=== PATIENT | female | born 1930 | race Caucasian/White ===

== ENCOUNTER 2017-04-17 12:33 | Inpatient (IN) | payer MEDICARE ==
[~2017-04-17] VITALS: Ht 160 cm; Wt 89.4 kg
[2017-04-17] MEDS ORDERED: Albuterol ud Inhalation HHN ONE (13:00)
[2017-04-17] MEDS ORDERED: METOPROLOL SUCC25 MG ORAL (13:07)
[2017-04-17] MEDS ORDERED: LORAZEPAM0.5 MG ORAL (13:07)
[2017-04-17] MEDS ORDERED: CRESTOR40 MG ORAL (13:07)
[2017-04-17] MEDS ORDERED: MULTIVITAMINS1 EAC2 ORAL (13:07)
[2017-04-17] MEDS ORDERED: LANTUS SOL100 UNIT/1 SUBQ (13:07)
[2017-04-17] MEDS ORDERED: MICARDIS40 MG ORAL (13:07)
[2017-04-17] MEDS ORDERED: GLIMEPIRIDE4 MG ORAL (13:07)
[2017-04-17] MEDS ORDERED: SYNTHROID25 MCG ORAL (13:07)
[2017-04-17] MEDS ORDERED: FUROSEMIDE20 M1 ORAL (13:07)
[2017-04-17] MEDS ORDERED: FOLIC ACID1 MG ORAL (13:07)
[2017-04-17] MEDS ORDERED: OMEGA-31000 M1 PO (13:07)
[2017-04-17] MEDS ORDERED: MIRALAX17 G2 ORAL (13:07)
[2017-04-17] MEDS ORDERED: VITAMIN D400 INTLU ORAL (13:07)
[2017-04-17] MEDS ORDERED: GLUCOSAMINE1000 M1 PO (13:07)
[2017-04-17] MEDS ORDERED: VITAMIN B-12100 MCG ORAL (13:07)
[2017-04-17] MEDS ORDERED: ASPIR 8181 MG ORAL (13:07)
[2017-04-17] MEDS ORDERED: CO Q-10400 MG PO (13:07)
[2017-04-17] MEDS ORDERED: JANUVIA25 MG ORAL (13:07)
[2017-04-17] MEDS ORDERED: GABAPENTIN600 MG ORAL (13:07)
[2017-04-17] MEDS ORDERED: NITROFURANTOIN100 MG PO (13:07)
[2017-04-17] MEDS ORDERED: TYLENOL EXTRA500 MG ORAL ×2 (13:07→18:54)
[2017-04-17] MEDS ORDERED: CALTRATE 600 +1 EAC2 PO (13:07)
[2017-04-17 13:15] VITALS: BP 142/61
[2017-04-17 13:47] LABS: BASOPHILS % (AUTO) 0.9 % (0.0-2.0); EOSINOPHILS % (AUTO) 1.5 % (0.0-3.0); HEMATOCRIT 43.7 % (37.0-47.0); HEMOGLOBIN 13.7 G/DL (12.0-16.0); LYMPHOCYTES % (AUTO) 24.8 % (20.0-45.0); MEAN CORPUSCULAR VOLUME 103 FL (80-99); MONOCYTES % (AUTO) 10.3 % (1.0-10.0); NEUTROPHILS % (AUTO) 62.5 % (45.0-75.0); PLATELET COUNT 113 K/UL (150-450); RED BLOOD COUNT 4.23 M/UL (4.20-5.40)
[2017-04-17 13:56] LABS: INR 1.1 (0.9-1.1)
[2017-04-17 13:59] LABS: ANION GAP 1 mmol/L (5-15); BLOOD UREA NITROGEN 38 mg/dL (7-18); CALCIUM 9.2 MG/DL (8.5-10.1); CHLORIDE 98 MMOL/L (98-107); CREATININE 1.3 MG/DL (0.55-1.30); POTASSIUM 5.5 MMOL/L (3.5-5.1); SODIUM 143 MMOL/L (136-145)
[2017-04-17 14:01] LABS: CARBON DIOXIDE 45 MMOL/L (21-32)
[2017-04-17 14:15] LABS: ALANINE AMINOTRANSFERASE 35 U/L (12-78); ALBUMIN 3.1 G/DL (3.4-5.0); ALBUMIN/GLOBULIN RATIO 0.8 (1.0-2.7); ALKALINE PHOSPHATASE 42 U/L (46-116); ASPARTATE AMINO TRANSFERASE 31 U/L (15-37); BILIRUBIN,TOTAL 0.4 MG/DL (0.2-1.0); CREATINE KINASE 35 U/L (26-308)
[2017-04-17 15:00] VITALS: BP 126/68
--- NOTE | 2017-04-17 15:10 | Emergency Room Report ---
History of Present Illness General Chief Complaint: Upper Respiratory Illness Source: Patient, EMS, Caregiver Present Illness HPI Paramedics called because of respiratory difficulty with low O2 saturations. Apparently O2 sats in 50-60s. Patient denies chest pain. Chronic CO2 retention. PMD felt she might have "fluid on her lungs", though not evaluated for this in past. Initial sat with EMS was 71% and this heri to 96% on 6 liters by NR mask. Patient denies fever, productive cough, NVD, calf pain. She does have some swelling of extremities. Pacemaker. Glucose 380 in field. ON BIPAP at home. 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 According to government instructor, patient is DNR/DNI. Patient states she is thirsty. Allergies: Coded Allergies: No Known Allergies (Unverified , 04/17/17) Patient History Limited by: medical condition Past Medical History: see triage record, old chart reviewed Past Surgical History: pacemaker Social History: Denies: smoking Social History Narrative with government instructor - born [facility] Reviewed Nursing Documentation: PMH: Agreed, PSxH: Agreed Nursing Documentation-PMH Past Medical History: No History, Except For Hx Cardiac Problems: Yes - CHF Hx Hypertension: Yes Hx COPD: Yes Hx Diabetes: Yes Hx Cancer: No - HYPOTHROIDISIM History Of Psychiatric Problem: Yes - ANXIETY Hx Cerebrovascular Accident: Yes Review of Systems All Other Systems: negative except mentioned in HPI Physical Exam Vital Signs Date Time Temp Pulse Resp B/P (MAP) Pulse Ox O2 Delivery O2 Flow Rate FiO2 04/17/17 12:25 98.2 87 20 150/55 92 Nasal Cannula 6.0 04/17/17 13:35 100 Sp02 EP Interpretation: reviewed, abnormal - interpreted as low by me General Appearance: GCS 15, mild distress, obese, Chronically Ill Head: normocephalic Eyes: bilateral eye normal inspection, bilateral eye PERRL ENT: dry mucus membranes Neck: supple Respiratory: crackles, rales, wheezing, expiration Cardiovascular #1: regular rate, rhythm, no JVD, edema - bilat + Cardiovascular #2: 2+ radial (R) Gastrointestinal: non tender, no mass, non-distended, decreased bowel sounds, overweight Genitourinary: normal inspection Musculoskeletal: back normal, normal range of motion, no calf tenderness Neurologic: alert, oriented x3, motor strength/tone normal, DTRs symmetric, sensory intact Psychiatric: anxious Skin: normal inspection, warm/dry Procedures Critical Care Time Critical Care Time Total Critical Care Time: 45 min bedside evaluation and treatment excludes procedures (EKG). Reason for critical care: evaluation of respiratory distress/failure, NSTEMI Possible complications: hypotension, hypertension, DE, shock, arrhythmias, metabolic acidosis, end organ damage, respiratory failure. Interventions: BIPAP, repeated exams, discussion with family regarding level of care Course: Patient with hypoxia and h/o CO2 retention. Treatment with beta agents. Re-evaluation with some confusion. BIPAP begun. + troponin treated with aspirin. Discussion with family regarding level of care (along with patient). Improved mentation on BIPAP. Discussion with admitting MD at bedside. Patient improved. VBG ordered. Lasix given. Consultations: nursing staff, EMS, family, RT, admitting MD Performed by: Dr. Marin Tolerated well condition = critical Medical Decision Making Diagnostic Impression: Primary Impression: Acute and chronic respiratory failure with hypoxia Additional Impressions: NSTEMI (non-ST elevated myocardial infarction) Atrial flutter Qualified Codes: I48.4 - Atypical atrial flutter DM2 (diabetes mellitus, type 2) Qualified Codes: E11.8 - Type 2 diabetes mellitus with unspecified complications; Z79.4 - manager terminal (current) use of insulin ER Course Patient with hypoxia and dyspnea. DDX: COPD exacerbation, CHF, AMI, PE, pneumonia amongst others. In moderate distress and emergent treatment with beta agents and solumedrol initiated. Need to exclude sepsis. EKG with atrial flutter 2:1. No injury. CXR with cardiomegaly with minimal increase in vascularity (chronic changes). Called with + troponin. Aspirin given. EKG without STEMI/injury. Patient slightly more confused after tx. O2 sats 93% on venti mask. About to get ABG, decided to place on BIPAP and get ABG on BiPAP. Discussion regarding intubation with family. Son is equivocal but patient adamant not to be intubated. Improved on BIPAP and more awake. No infectious source identified and normal WBC. Min renal insufficiency. Exam by Dr. Hill in ED and discussed. She requests lasix. Admit NAI Dr. Orellana. Laboratory Tests Test 04/17/17 13:30 04/17/17 16:30 2/7/18 17:00 White Blood Count 9.0 K/UL (4.8-10.8) Red Blood Count 4.23 M/UL (4.20-5.40) Hemoglobin 13.7 G/DL (12.0-16.0) Hematocrit 43.7 % (37.0-47.0) Mean Corpuscular Volume 103 FL (80-99) H Mean Corpuscular Hemoglobin 32.4 PG (27.0-31.0) H Mean Corpuscular Hemoglobin Concent 31.4 G/DL (32.0-36.0) L Red Cell Distribution Width 16.0 % (11.6-14.8) H Platelet Count 113 K/UL (150-450) L Mean Platelet Volume 9.2 FL (6.5-10.1) Neutrophils (%) (Auto) 62.5 % (45.0-75.0) Lymphocytes (%) (Auto) 24.8 % (20.0-45.0) Monocytes (%) (Auto) 10.3 % (1.0-10.0) H Eosinophils (%) (Auto) 1.5 % (0.0-3.0) Basophils (%) (Auto) 0.9 % (0.0-2.0) Prothrombin Time 11.3 SEC (9.30-11.50) Prothrombin Time INR 1.1 (0.9-1.1) PTT 27 SEC (23-33) Sodium Level 143 MMOL/L (136-145) Potassium Level 5.5 MMOL/L (3.5-5.1) H Chloride Level 98 MMOL/L (98-107) Carbon Dioxide Level 45 MMOL/L (21-32) *H Anion Gap 1 mmol/L (5-15) L Blood Urea Nitrogen 38 mg/dL (7-18) H Creatinine 1.3 MG/DL (0.55-1.30) Estimate Glomerular Filtration Rate mL/min (>60) Glucose Level 324 MG/DL (74-106) H Calcium Level 9.2 MG/DL (8.5-10.1) Total Bilirubin 0.4 MG/DL (0.2-1.0) Aspartate Amino Transferase (AST) 31 U/L (15-37) Alanine Aminotransferase (ALT) 35 U/L (12-78) Alkaline Phosphatase 42 U/L (46-116) L Total Creatine Kinase 35 U/L (26-308) Troponin I 0.107 ng/mL (0.000-0.056) Pro-B-Type Natriuretic Peptide 3982 pg/mL (0-125) H Total Protein 6.9 G/DL (6.4-8.2) Albumin 3.1 G/DL (3.4-5.0) L Globulin 3.8 g/dL Albumin/Globulin Ratio 0.8 (1.0-2.7) L Urine Color Pale yellow Urine Appearance Clear Urine pH 6 (4.5-8.0) Urine Specific [place] 1.010 (1.005-1.035) Urine Protein 1+ (NEGATIVE) H Urine Glucose (UA) Negative (NEGATIVE) Urine Ketones Negative (NEGATIVE) Urine Occult Blood 1+ (NEGATIVE) H Urine Nitrite Negative (NEGATIVE) Urine Bilirubin Negative (NEGATIVE) Urine Urobilinogen Normal MG/DL (0.0-1.0) Urine Leukocyte Esterase 1+ (NEGATIVE) H Urine RBC 0-2 /HPF (0 - 2) Urine WBC 2-4 /HPF (0 - 2) Urine Squamous Epithelial Cells Few /LPF (NONE/OCC) Urine Bacteria Few /HPF (NONE) Venous Blood pH Pending Venous Blood Partial Pressure CO2 Pending Venous Blood Partial Pressure O2 Pending Venous Blood HCO3 Pending Venous Blood Total Carbon Dioxide Pending Venous Bld O2 Saturation (Measured) 67.9 Venous Blood Oxygen Saturation Pending Venous Blood Base Excess Pending Methemoglobin Pending Sodium (Blood Gas) mmol/l (135-148) EKG Diagnostic Results Rate: normal Rhythm: other - atrial flutter 2:1 ST Segments: no acute changes Rhythm Strip Diag. Results EP Interpretation: yes Rhythm: NSR, no PVC's, no ectopy Chest X-Ray Diagnostic Results Chest X-Ray Diagnostic Results : Chest X-Ray Ordered: Yes # of Views/Limited/Complete: 1 View Indication: Other EP Interpretation: Yes Interpretation: no effusion, no pneumothorax, other - cardiomegally, increased romero, pacer L Impression: Other Electronically Signed by: Electronically signed by Eleuterio Marin MD Last Vital Signs Date Time Temp Pulse Resp B/P (MAP) Pulse Ox O2 Delivery O2 Flow Rate FiO2 04/18/17 00:58 107 36 96 Full Face 30 04/18/17 00:00 98.1 124/62 2/7/18 20:00 15.0 Status: improved Disposition: ADMITTED INPATIENT Condition: Critical Referrals: NON PHYSICIAN (PCP) Eleuterio Marin M.D. Apr 17, 2017 15:10
[2017-04-17] MEDS ORDERED: Solu-MEDROL 125mg Inj IVP ONE (15:30)
--- NOTE | 2017-04-17 15:48 | History and Physical ---
History of Present Illness General Date patient seen: Apr 17, 2017 Time patient seen: 15:48 Reason for Hospitalization: Hypoxia, CHF Present Illness HPI 87 year oldfemale with pmh of chronic diastolic heart failure, Aflutter, hypothyroidism, obesity, chronic hypercapnea with alveolar hypoventilation (on BiPAP qHS and PRN at home), restrictive ventilatory defect, chronic hypoxic respiratory failure (on home O2), HTN, DM, depression/anxiety, SSS s/p PPM, hypothyroidism, and h/o CVA who presents with SOB and hypoxia. Pt was recently admitted at [facility] 02/20//02/22/17 for chest pain and underwent CT coronary angio for further risk assessment, showed increased plaque burden compared to prior but no critical stenoses. Per son, pt was doing well until abt 24-48h ago when she was noted to be more short of breath. Pt notes compliance with BiPAP. Pt recently seen by cardiology and lasix dose increased 2/2 fluid overload. Denies f/c, n/v, d/c, chest pain, abd pain. In ED, pt hypoxic to 70s on room air, placed on O2 w/ some improvement and then placed on BiPAP. She was given lasix 40mg IV in ED. Pt also w/ elevated trop to 0.107. EKG showed Aflutter 2:1 w/ rate to 120s. Allergies: Coded Allergies: No Known Allergies (Unverified , 04/17/17) Medication History Scheduled Aspirin* (Aspir 81*), 81 MG ORAL DAILY, (Reported) Folic Acid* (Folic Acid*), 1 MG ORAL DAILY, (Reported) Furosemide* (Lasix*), 20 MG ORAL DAILY, (Reported) Gabapentin* (Gabapentin*), 600 MG ORAL THREE TIMES A DAY, (Reported) Glimepiride* (Glimepiride*), 4 MG ORAL BEFORE BREAKFAST, (Reported) Insulin Glargine (Lantus), 0 SUBQ BEDTIME, (Reported) Lorazepam* (Lorazepam*), 0.5 MG ORAL THREE TIMES A DAY, (Reported) Metoprolol Succinate* (Metoprolol Succinate*), 25 MG ORAL DAILY, (Reported) Multivitamins* (Multivitamins*), 1 TAB ORAL DAILY, (Reported) Polyethylene Glycol 3350* (Miralax*), 17 GM ORAL DAILY, (Reported) Rosuvastatin Calcium* (Crestor*), 40 MG ORAL DAILY, (Reported) Telmisartan (Micardis), 40 MG ORAL DAILY, (Reported) Scheduled PRN Acetaminophen* (Tylenol Extra Strength*), 500 MG ORAL Q6H PRN for Mild Pain/ Temp > 100.5, (Reported) Miscellaneous Medications Calcium Carbonate/Vitamin D3 (Caltrate 600 + D Tablet), 1 EACH PO, (Reported) Cholecalciferol (Vitamin D3) (Vitamin D-400*), 100 UNITS ORAL, (Reported) Ciprofloxacin* (Ciprofloxacin*), 250 MG PO, (Reported) Cyanocobalamin (Vitamin B-12) (B-12), 1,000 MCG PO, (Reported) Glucosamine Sulfate 2KCL (Glucosamine), 1,500 MG PO, (Reported) Levothyroxine Sodium* (Levothyroxine Sodium*), 50 MCG ORAL, (Reported) Nitrofurantoin Macrocrystal (Nitrofurantoin), 100 MG PO, (Reported) [place]-3/Dha/Epa/Fish Oil ([place]-3 Fish Oil 1,200 Mg Sfgl), 1,200 MG PO, ( Reported) Sitagliptin (Januvia), 50 MG ORAL, (Reported) Tiotropium [place]* (Spiriva*), 1 PUFF INH, (Reported) Ubidecarenone (Co Q-10), 400 MG PO, (Reported) Discontinued Medications Acetaminophen* (Tylenol Extra Strength*), 500 MG ORAL, (Reported) Discontinued Reason: Pt had allergic rxn Cyanocobalamin (Vitamin B-12), 1,000 MCG ORAL DAILY, (Reported) Discontinued Reason: Prescription changed Levothyroxine Sodium* (Synthroid*), 50 MCG ORAL DAILY, (Reported) Discontinued Reason: Prescription changed [place]-3 Fatty Acids ([place]-3), 1,200 MG PO, (Reported) Discontinued Reason: Prescription changed Sitagliptin* (Januvia*), 50 MG ORAL DAILY, (Reported) Discontinued Reason: Prescription changed Tiotropium Br/Olodaterol HCl (Stiolto Respimat Inhal [place]), 2.5 MCG IH, ( Reported) Discontinued Reason: Pt had allergic rxn Vitamin D (Vitamin D3), 100 UNITS ORAL DAILY, (Reported) Discontinued Reason: Prescription changed Patient History History Provided By: Patient, Family Member, Medical Record, PMD Healthcare decision maker Resuscitation status Advanced Directive on File Past Medical/Surgical History Past Medical/Surgical History: (1) chronic hypercapnea with alveolar hypoventilation (on BiPAP qHS and PRN at home) (2) Obesity (3) Chronic respiratory failure with hypoxia (4) Aflutter (5) Hypothyroidism (6) DM2 (diabetes mellitus, type 2) (7) Moderate to severe pulmonary hypertension (8) Chronic diastolic (congestive) heart failure (9) H/O: CVA (cerebrovascular accident) (10) SSS s/p PPM Family History Family History: Patient reports no known family medical history. Social History Social History: (1) lives at home with 01/10 caregiver Review of Systems Constitutional: Reports: malaise, weakness Eye: Reports: no symptoms ENT: Reports: no symptoms Respiratory: Reports: cough, orthopnea, shortness of breath Cardiovascular: Reports: no symptoms Gastrointestinal: Reports: no symptoms Genitourinary: Reports: no symptoms Musculoskeletal: Reports: no symptoms Skin: Reports: no symptoms Psychiatric: Reports: no symptoms Neurological: Reports: no symptoms Endocrine: Reports: no symptoms Hematologic/Lymphatic: Reports: no symptoms Physical Exam Physical Exam Narrative General: alert, cooperative, no distress, appears stated age Head: normocephalic, without obvious abnormality, atraumatic Eyes: conjunctivae/corneas clear. PERRL, EOM's intact Throat: lips, mucosa, and tongue normal. MMM Neck: supple, symmetrical, trachea midline, and +JVD Lungs: decreased breath sounds b/l Heart: regular rate and rhythm, S1, S2 normal, no murmur, click, rub or gallop Abdomen: soft, non-tender, non-distended, bowel sounds normal Extremities: extremities normal, atraumatic, no cyanosis, 1-2+ pitting edema up to BLE knees Pulses: 2+ and symmetric Skin: skin color, texture, turgor normal; no rashes or lesions Neurologic: grossly normal, no focal deficits Last 24 Hour Vital Signs Date Time Temp Pulse Resp B/P (MAP) Pulse Ox O2 Delivery O2 Flow Rate FiO2 04/17/17 15:15 40 04/17/17 15:00 118 26 93 Full Face 40 04/17/17 13:43 80 24 99 Room Air 04/17/17 13:38 78 24 Room Air 04/17/17 13:35 74 24 99 Non-Rebreather 100 04/17/17 13:15 87 24 04/17/17 13:15 87 24 142/61 90 Nasal Cannula 3.0 04/17/17 12:25 98.2 87 20 150/55 92 Nasal Cannula 6.0 Laboratory Tests Test 04/17/17 13:30 White Blood Count 9.0 K/UL (4.8-10.8) Red Blood Count 4.23 M/UL (4.20-5.40) Hemoglobin 13.7 G/DL (12.0-16.0) Hematocrit 43.7 % (37.0-47.0) Mean Corpuscular Volume 103 FL (80-99) H Mean Corpuscular Hemoglobin 32.4 PG (27.0-31.0) H Mean Corpuscular Hemoglobin Concent 31.4 G/DL (32.0-36.0) L Red Cell Distribution Width 16.0 % (11.6-14.8) H Platelet Count 113 K/UL (150-450) L Mean Platelet Volume 9.2 FL (6.5-10.1) Neutrophils (%) (Auto) 62.5 % (45.0-75.0) Lymphocytes (%) (Auto) 24.8 % (20.0-45.0) Monocytes (%) (Auto) 10.3 % (1.0-10.0) H Eosinophils (%) (Auto) 1.5 % (0.0-3.0) Basophils (%) (Auto) 0.9 % (0.0-2.0) Prothrombin Time 11.3 SEC (9.30-11.50) Prothromb Time International Ratio 1.1 (0.9-1.1) Activated Partial Thromboplast Time 27 SEC (23-33) Sodium Level 143 MMOL/L (136-145) Potassium Level 5.5 MMOL/L (3.5-5.1) H Chloride Level 98 MMOL/L (98-107) Carbon Dioxide Level 45 MMOL/L (21-32) *H Anion Gap 1 mmol/L (5-15) L Blood Urea Nitrogen 38 mg/dL (7-18) H Creatinine 1.3 MG/DL (0.55-1.30) Estimat Glomerular Filtration Rate mL/min (>60) Glucose Level 324 MG/DL (74-106) H Calcium Level 9.2 MG/DL (8.5-10.1) Total Bilirubin 0.4 MG/DL (0.2-1.0) Aspartate Amino Transf (AST/SGOT) 31 U/L (15-37) Alanine Aminotransferase (ALT/SGPT) 35 U/L (12-78) Alkaline Phosphatase 42 U/L (46-116) L Total Creatine Kinase 35 U/L (26-308) Troponin I 0.107 ng/mL (0.000-0.056) Pro-B-Type Natriuretic Peptide 3982 pg/mL (0-125) H Total Protein 6.9 G/DL (6.4-8.2) Albumin 3.1 G/DL (3.4-5.0) L Globulin 3.8 g/dL Albumin/Globulin Ratio 0.8 (1.0-2.7) L Height (Feet): 5 Height (Inches): 3.00 Weight (Pounds): 180 Assessment/Plan Problem List: (1) Acute and chronic respiratory failure with hypoxia ICD Codes: J96.21 - Acute and chronic respiratory failure with hypoxia SNOMED: 376189395, 093632014 (2) Acute on chronic diastolic (congestive) heart failure ICD Codes: I50.33 - Acute on chronic diastolic (congestive) heart failure SNOMED: 62248274, 802215955 (3) Aflutter with RVR (4) NSTEMI (non-ST elevated myocardial infarction) ICD Codes: I21.4 - Non-ST elevation (NSTEMI) myocardial infarction SNOMED: 601960942 (5) chronic hypercapnea with alveolar hypoventilation (on BiPAP qHS and PRN at home) (6) Moderate to severe pulmonary hypertension ICD Codes: I27.20 - Pulmonary hypertension, unspecified SNOMED: 21767221 (7) Obesity ICD Codes: E66.9 - Obesity, unspecified SNOMED: 054970247 (8) Hypothyroidism ICD Codes: E03.9 - Hypothyroidism, unspecified SNOMED: 76528137 (9) H/O: CVA (cerebrovascular accident) ICD Codes: Z86.73 - Personal history of transient ischemic attack (TIA), and cerebral infarction without residual deficits SNOMED: 314996619 (10) SSS s/p PPM (11) DM2 (diabetes mellitus, type 2) ICD Codes: E11.9 - Type 2 diabetes mellitus without complications SNOMED: 53113508 (12) Hyperkalemia ICD Codes: E87.5 - Hyperkalemia SNOMED: 01432775 Status: stable Assessment/Plan Admit to NAI Pulm and cardiology consulted Trend trop/EKG Check TTE Cont BiPAP 15/15, RR 18, titrate FIO2 to O2 sat 91-93% Atrovent ATC and PRN Trend ABG Lasix 40mg IV for I/Os goal -1 to 1.5L Strict I/O's, daily weights Monitor BMP, replete lytes as needed Cont home meds but hold micardis given hyperkalemia YANICK Pain control, bowel regimen Supportive care DVT Prophylaxis: SCD, HSQ Code Status: Full Hospital Classification Declaration: Based on this initial evaluation, and depending on the patient's clinical course, I anticipate that this patient will require hospitalization for 2-3 days for hypoxia, CHF and close respiratory/ hemodynamic monitoring. Disposition: Once the patient is stable to leave the hospital, I anticipate the patient will likely be discharged to the following environment: home with HH vs SNF I spent 74 minutes on this patient's case, and >50% was dedicated to counseling and/or care coordination. Discussed with patient/family, nursing staff, SW/MEGHANA, pulm, cardiology regarding clinical status, treatment course, and disposition planning. Time of note may not reflect time of encounter. Sergio Felix M.D. Apr 17, 2017 15:48
--- NOTE | 2017-04-17 15:57 | Diagnostic Imaging Report ---
Indication: Chest pain Technique: One view of the chest Comparison: none Findings: The heart is enlarged. There is a left chest bifocal pacemaker. There is fullness to the pulmonary arteries. One or more calcified granulomas are seen in the left upper lobe. There is generalized mild interstitial prominence which is probably on the basis of senescent change Impression: Cardiomegaly Suspect chronic interstitial disease. No definite acute process Evidence of old granulomatous disease
[2017-04-17] MEDS ORDERED: Albuterol/Ipratropium 3ml neb HHN PRN (16:00)
[2017-04-17] MEDS ORDERED: Miralax 17gm pkt ORAL PRN (16:00)
[2017-04-17 16:58] LABS: APPEARANCE,URINE CLEAR; BILIRUBIN, URINE NEGATIVE (NEGATIVE); COLOR,URINE PALE YELLOW; GLUCOSE, URINE (UA) NEGATIVE (NEGATIVE); KETONES,URINE NEGATIVE (NEGATIVE); LEUKOCYTE ESTERASE ,URINE 1+ (NEGATIVE); NITRITE,URINE NEGATIVE (NEGATIVE); PH,URINE 6 (4.5-8.0); PROTEIN,URINE 1+ (NEGATIVE); UROBILINOGEN,URINE NORMAL MG/DL (0.0-1.0)
[2017-04-17 17:00] VITALS: BP 125/95
[2017-04-17] MEDS ORDERED: Ipratropium 0.02% Inh Soln 2.5ml UD HHN PRN (17:00)
[2017-04-17] MEDS: Ipratropium 0.02% Inh Soln 2.5ml UD HHN SCH ×2 (18:00→23:00)
[2017-04-17] MEDS ORDERED: CIPROFLOXACIN250 MG PO (18:13)
[2017-04-17] MEDS ORDERED: SPIRIVA18 MCG INH (18:43)
[2017-04-17] MEDS ORDERED: OMEGA-3 FISH1200 MG PO (18:43)
[2017-04-17] MEDS ORDERED: VITAMIN D-40400 UNIT ORAL (18:43)
[2017-04-17] MEDS ORDERED: LEVOTHYROXINE50 MCG ORAL (18:43)
[2017-04-17] MEDS ORDERED: B-121000 MCG PO (18:43)
[2017-04-17] MEDS ORDERED: JANUVIA50 MG ORAL (18:43)
[2017-04-17] MEDS ORDERED: STIOLTO RESPIMAT4 GM IH (18:43)
[2017-04-17] MEDS ORDERED: Albuterol/Ipratropium 3ml neb HHN SCH (19:00)
[2017-04-17 19:16] VITALS: BP 136/73
[2017-04-17 20:00] VITALS: BP 134/79
[2017-04-17] MEDS: Heparin 5000 units/ml inj SUBQ SCH (21:00)
[2017-04-17] MEDS: Atorvastatin 80mg tab ORAL SCH (22:00)
[2017-04-17] MEDS: NovoLOG Insulin Flexpen SUBQ SCH (22:02)
--- NOTE | 2017-04-17 22:20 | Consultation ---
History of Present Illness General Date patient seen: Apr 17, 2017 Chief Complaint: Upper Respiratory Illness Referring physician: Dr. Orellana Reason for Consultation: dysnpnea Present Illness HPI 87 year old female with hx of CVA, Dementia, CHF, pace maker, DM, on Chronic CO2 retention, on BIPAP at home was brought in by [facility]EMS becasue patient's blood sugar was low. The patient had altered mentation with low blood sugar but this improved on the way in. Pt was found to have acute NSTEMI and pulmonary edema, with ATN and admitted to [facility]. Pt looks comfortable, chronically ill. Allergies: Coded Allergies: No Known Allergies (Unverified , 04/17/17) Medication History Scheduled Aspirin* (Aspir 81*), 81 MG ORAL DAILY, (Reported) Folic Acid* (Folic Acid*), 1 MG ORAL DAILY, (Reported) Furosemide* (Lasix*), 20 MG ORAL DAILY, (Reported) Gabapentin* (Gabapentin*), 600 MG ORAL THREE TIMES A DAY, (Reported) Glimepiride* (Glimepiride*), 4 MG ORAL BEFORE BREAKFAST, (Reported) Insulin Glargine (Lantus), 0 SUBQ BEDTIME, (Reported) Lorazepam* (Lorazepam*), 0.5 MG ORAL THREE TIMES A DAY, (Reported) Metoprolol Succinate* (Metoprolol Succinate*), 25 MG ORAL DAILY, (Reported) Multivitamins* (Multivitamins*), 1 TAB ORAL DAILY, (Reported) Polyethylene Glycol 3350* (Miralax*), 17 GM ORAL DAILY, (Reported) Rosuvastatin Calcium* (Crestor*), 40 MG ORAL DAILY, (Reported) Telmisartan (Micardis), 40 MG ORAL DAILY, (Reported) Scheduled PRN Acetaminophen* (Tylenol Extra Strength*), 500 MG ORAL Q6H PRN for Mild Pain/ Temp > 100.5, (Reported) Miscellaneous Medications Calcium Carbonate/Vitamin D3 (Caltrate 600 + D Tablet), 1 EACH PO, (Reported) Cholecalciferol (Vitamin D3) (Vitamin D-400*), 100 UNITS ORAL, (Reported) Ciprofloxacin* (Ciprofloxacin*), 250 MG PO, (Reported) Cyanocobalamin (Vitamin B-12) (B-12), 1,000 MCG PO, (Reported) Glucosamine Sulfate 2KCL (Glucosamine), 1,500 MG PO, (Reported) Levothyroxine Sodium* (Levothyroxine Sodium*), 50 MCG ORAL, (Reported) Nitrofurantoin Macrocrystal (Nitrofurantoin), 100 MG PO, (Reported) [place]-3/Dha/Epa/Fish Oil ([place]-3 Fish Oil 1,200 Mg Sfgl), 1,200 MG PO, ( Reported) Sitagliptin (Januvia), 50 MG ORAL, (Reported) Tiotropium [place]* (Spiriva*), 1 PUFF INH, (Reported) Ubidecarenone (Co Q-10), 400 MG PO, (Reported) Discontinued Medications Acetaminophen* (Tylenol Extra Strength*), 500 MG ORAL, (Reported) Discontinued Reason: Pt had allergic rxn Cyanocobalamin (Vitamin B-12), 1,000 MCG ORAL DAILY, (Reported) Discontinued Reason: Prescription changed Levothyroxine Sodium* (Synthroid*), 50 MCG ORAL DAILY, (Reported) Discontinued Reason: Prescription changed [place]-3 Fatty Acids ([place]-3), 1,200 MG PO, (Reported) Discontinued Reason: Prescription changed Sitagliptin* (Januvia*), 50 MG ORAL DAILY, (Reported) Discontinued Reason: Prescription changed Tiotropium Br/Olodaterol HCl (Stiolto Respimat Inhal [place]), 2.5 MCG IH, ( Reported) Discontinued Reason: Pt had allergic rxn Vitamin D (Vitamin D3), 100 UNITS ORAL DAILY, (Reported) Discontinued Reason: Prescription changed Patient History Healthcare decision maker Resuscitation status Advanced Directive on File No Past Medical/Surgical History Past Medical/Surgical History: (1) Obesity (2) DM2 (diabetes mellitus, type 2) (3) H/O: CVA (cerebrovascular accident) (4) lives at home with 24/7 caregiver (5) Atrial flutter Review of Systems All Other Systems: negative except mentioned in HPI Physical Exam General Appearance: WD/WN Lines, tubes and drains: peripheral HEENT: normocephalic, EOMI Neck: normal alignment Respiratory/Chest: chest wall non-tender Breasts: no masses Cardiovascular/Chest: normal peripheral pulses, normal rate Abdomen: normal bowel sounds, non tender Genitourinary/Rectal: normal genital exam Extremities: normal range of motion Skin Exam: normal pigmentation Last 24 Hour Vital Signs Date Time Temp Pulse Resp B/P (MAP) Pulse Ox O2 Delivery O2 Flow Rate FiO2 04/17/17 21:08 101 23 93 04/17/17 19:16 98.2 126 18 136/73 100 3.0 30 04/17/17 19:04 124 20 92 Full Face 30 04/17/17 17:28 30 04/17/17 17:24 125 19 97 Full Face 30 04/17/17 17:00 125 23 125/95 92 Bi-pap 30 04/17/17 15:15 40 04/17/17 15:00 98 23 126/68 92 Nasal Cannula 3.0 04/17/17 15:00 118 26 93 Full Face 40 04/17/17 13:43 80 24 99 Room Air 04/17/17 13:38 78 24 Room Air 04/17/17 13:35 74 24 99 Non-Rebreather 100 04/17/17 13:15 87 24 04/17/17 13:15 87 24 142/61 90 Nasal Cannula 3.0 04/17/17 12:25 98.2 87 20 150/55 92 Nasal Cannula 6.0 Laboratory Tests Test 04/17/17 13:30 04/17/17 16:30 04/17/17 17:00 White Blood Count 9.0 K/UL (4.8-10.8) Red Blood Count 4.23 M/UL (4.20-5.40) Hemoglobin 13.7 G/DL (12.0-16.0) Hematocrit 43.7 % (37.0-47.0) Mean Corpuscular Volume 103 FL (80-99) H Mean Corpuscular Hemoglobin 32.4 PG (27.0-31.0) H Mean Corpuscular Hemoglobin Concent 31.4 G/DL (32.0-36.0) L Red Cell Distribution Width 16.0 % (11.6-14.8) H Platelet Count 113 K/UL (150-450) L Mean Platelet Volume 9.2 FL (6.5-10.1) Neutrophils (%) (Auto) 62.5 % (45.0-75.0) Lymphocytes (%) (Auto) 24.8 % (20.0-45.0) Monocytes (%) (Auto) 10.3 % (1.0-10.0) H Eosinophils (%) (Auto) 1.5 % (0.0-3.0) Basophils (%) (Auto) 0.9 % (0.0-2.0) Prothrombin Time 11.3 SEC (9.30-11.50) Prothromb Time International Ratio 1.1 (0.9-1.1) Activated Partial Thromboplast Time 27 SEC (23-33) Sodium Level 143 MMOL/L (136-145) Potassium Level 5.5 MMOL/L (3.5-5.1) H Chloride Level 98 MMOL/L (98-107) Carbon Dioxide Level 45 MMOL/L (21-32) *H Anion Gap 1 mmol/L (5-15) L Blood Urea Nitrogen 38 mg/dL (7-18) H Creatinine 1.3 MG/DL (0.55-1.30) Estimat Glomerular Filtration Rate mL/min (>60) Glucose Level 324 MG/DL (74-106) H Calcium Level 9.2 MG/DL (8.5-10.1) Total Bilirubin 0.4 MG/DL (0.2-1.0) Aspartate Amino Transf (AST/SGOT) 31 U/L (15-37) Alanine Aminotransferase (ALT/SGPT) 35 U/L (12-78) Alkaline Phosphatase 42 U/L (46-116) L Total Creatine Kinase 35 U/L (26-308) Troponin I 0.107 ng/mL (0.000-0.056) Pro-B-Type Natriuretic Peptide 3982 pg/mL (0-125) H Total Protein 6.9 G/DL (6.4-8.2) Albumin 3.1 G/DL (3.4-5.0) L Globulin 3.8 g/dL Albumin/Globulin Ratio 0.8 (1.0-2.7) L Urine Color Pale yellow Urine Appearance Clear Urine pH 6 (4.5-8.0) Urine Specific [place] 1.010 (1.005-1.035) Urine Protein 1+ (NEGATIVE) H Urine Glucose (UA) Negative (NEGATIVE) Urine Ketones Negative (NEGATIVE) Urine Occult Blood 1+ (NEGATIVE) H Urine Nitrite Negative (NEGATIVE) Urine Bilirubin Negative (NEGATIVE) Urine Urobilinogen Normal MG/DL (0.0-1.0) Urine Leukocyte Esterase 1+ (NEGATIVE) H Urine RBC 0-2 /HPF (0 - 2) Urine WBC 2-4 /HPF (0 - 2) Urine Squamous Epithelial Cells Few /LPF (NONE/OCC) Urine Bacteria Few /HPF (NONE) Venous Blood pH Pending Venous Blood Partial Pressure CO2 Pending Venous Blood Partial Pressure O2 Pending Venous Blood HCO3 Pending Venous Blood Total Carbon Dioxide Pending Venous Bld O2 Saturation (Measured) 67.9 Venous Blood Oxygen Saturation Pending Venous Blood Base Excess Pending Methemoglobin Pending Sodium (Blood Gas) mmol/l (135-148) Height (Feet): 5 Height (Inches): 3.00 Weight (Pounds): 180 Medications Current Medications Medications (Trade) Dose Ordered Sig/[place] Route PRN Reason Start Time Stop Time Status Last Admin Dose Admin Acetaminophen (Tylenol) 650 mg Q4H PRN ORAL Fever (temp>100.5F) 04/17/17 16:00 05/17/17 15:59 04/17/17 22:16 Aspirin (Ecotrin) 81 mg DAILY ORAL 04/18/17 09:00 05/18/17 08:59 Atorvastatin Calcium (Lipitor) 80 mg BEDTIME ORAL 04/17/17 21:00 05/17/17 20:59 04/17/17 22:00 Dextrose (Dextrose 50%) STAT PRN IV Hypoglycemia 04/17/17 19:45 05/17/17 19:44 Folic Acid (Folate) 1 mg DAILY ORAL 04/18/17 09:00 05/18/17 08:59 Furosemide (Lasix) 40 mg EVERY 8 HOURS IV 04/17/17 16:00 05/17/17 15:59 04/17/17 22:00 Gabapentin (Neurontin) 600 mg THREE TIMES A DAY ORAL 04/18/17 09:00 05/18/17 08:59 Heparin Sodium (Porcine) (Heparin 5000 units/ml) 5,000 units EVERY 12 HOURS SUBQ 04/17/17 21:00 05/17/17 20:59 Insulin Aspart (NovoLOG) BEFORE MEALS AND HS SUBQ 04/17/17 21:00 05/17/17 20:59 04/17/17 22:02 Ipratropium [place] (Atrovent) 500 mcg Q4H PRN HHN SOB, wheezing 04/17/17 17:00 04/22/17 16:59 Ipratropium [place] (Atrovent) 500 mcg Q4HRT HHN 04/17/17 18:00 04/22/17 17:59 Levothyroxine Sodium (Synthroid) 50 mcg DAILY@0630 ORAL 04/18/17 06:30 05/18/17 06:29 Metoprolol Succinate (Toprol XL) 25 mg DAILY ORAL 04/18/17 09:00 05/18/17 08:59 Ondansetron HCl (Zofran) 4 mg Q6H PRN IVP Nausea & Vomiting 04/17/17 16:00 05/17/17 15:59 Polyethylene Glycol (Miralax) 17 gm DAILYPRN PRN ORAL Constipation 04/17/17 16:00 05/17/17 15:59 Sitagliptin Phosphate (Januvia) 50 mg ACBREAKFAST ORAL 04/18/17 06:30 05/18/17 06:29 Temazepam (Restoril) 15 mg HSPRN PRN ORAL Insomnia 04/17/17 16:00 04/24/17 15:59 Tiotropium [place] (Spiriva Inhaler) 1 puff DAILY INH 04/18/17 09:00 05/18/17 08:59 Assessment/Plan Problem List: (1) Acute on chronic diastolic (congestive) heart failure ICD Codes: I50.33 - Acute on chronic diastolic (congestive) heart failure SNOMED: 20003240, 494076952 (2) NSTEMI (non-ST elevated myocardial infarction) ICD Codes: I21.4 - Non-ST elevation (NSTEMI) myocardial infarction SNOMED: 771604484 (3) Chronic diastolic (congestive) heart failure ICD Codes: I50.32 - Chronic diastolic (congestive) heart failure SNOMED: 25928531, 234098725 (4) DM2 (diabetes mellitus, type 2) ICD Codes: E11.9 - Type 2 diabetes mellitus without complications SNOMED: 65095073 Assessment/Plan respiratory treatment IV diuretics check intake and output Cardiology to see check out pacemaker sliding scale prn BIPAP dvt prophylaxis JONI MADERA Apr 17, 2017 22:20
[2017-04-18] VITALS: BP 124/62
[2017-04-18] MEDS ORDERED: LORazepam Inj 2mg/ml 1ml IV PRN (02:45)
[2017-04-18] MEDS: Ipratropium 0.02% Inh Soln 2.5ml UD HHN SCH ×6 (03:00→23:14)
[2017-04-18 04:00] VITALS: BP 131/76
[2017-04-18] MEDS: sitaGLIPtin 50mg tab ORAL SCH (06:29)
[2017-04-18] MEDS: NovoLOG Insulin Flexpen SUBQ SCH ×4 (06:30→21:16)
[2017-04-18 07:13] LABS: BASOPHILS % (AUTO) 0.4 % (0.0-2.0); HEMATOCRIT 43.3 % (37.0-47.0); LYMPHOCYTES % (AUTO) 15.2 % (20.0-45.0); MEAN CORPUSCULAR VOLUME 103 FL (80-99); MONOCYTES % (AUTO) 4.9 % (1.0-10.0); NEUTROPHILS % (AUTO) 79.5 % (45.0-75.0); PLATELET COUNT 116 K/UL (150-450); RED BLOOD COUNT 4.22 M/UL (4.20-5.40); RED CELL DISTRIBUTION WIDTH 15.4 % (11.6-14.8); WHITE BLOOD COUNT 6.4 K/UL (4.8-10.8)
[2017-04-18 07:52] LABS: ALBUMIN 2.8 G/DL (3.4-5.0); BLOOD UREA NITROGEN 36 mg/dL (7-18); CALCIUM 9.4 MG/DL (8.5-10.1); CHLORIDE 97 MMOL/L (98-107); CHOLESTEROL 117 MG/DL (< 200); CREATININE 1.2 MG/DL (0.55-1.30); HDL CHOLESTEROL 50 MG/DL (40-60); PHOSPHORUS 3.9 MG/DL (2.5-4.9); POTASSIUM 4.4 MMOL/L (3.5-5.1); SODIUM 142 MMOL/L (136-145); TRIGLYCERIDES 62 MG/DL (30-150)
[2017-04-18 07:56] LABS: CARBON DIOXIDE > 45 MMOL/L (21-32)
[2017-04-18 08:00] VITALS: BP 117/51
[2017-04-18 08:30] LABS: PHOSPHORUS 3.8 MG/DL (2.5-4.9)
[2017-04-18] MEDS ORDERED: Metoprolol Succinate XL 25mg tab ORAL SCH (09:00)
[2017-04-18] MEDS: Aspirin EC 81mg tab ORAL SCH (09:33)
[2017-04-18] MEDS: Heparin 5000 units/ml inj SUBQ SCH ×2 (09:37→21:17)
--- NOTE | 2017-04-18 10:51 | Diagnostic Imaging Report ---
Indication: Renal failure Technique: US Renal Comparison: None Findings: Limited exam given patient body habitus and inability to cooperate with exam positioning. No definite evidence of hydronephrosis bilaterally. Kidneys are grossly unremarkable however not well evaluated. Bladder is collapsed, question indwelling Pollard catheter. Impression: Limited exam given patient inability to cooperate with exam positioning and body habitus. No definite evidence of hydronephrosis bilaterally. Bladder is collapsed limiting its evaluation. Question indwelling Pollard catheter.
--- NOTE | 2017-04-18 11:02 | Cardiac Electrophysiology PN ---
Subjective Subjective [id number] Objective Last 24 Hour Vital Signs Date Time Temp Pulse Resp B/P (MAP) Pulse Ox O2 Delivery O2 Flow Rate FiO2 04/18/17 09:36 150 117/51 04/18/17 09:18 107 22 95 Full Face 30 04/18/17 08:00 92 04/18/17 07:55 104 20 95 Bi-pap 30 04/18/17 07:55 104 20 96 Full Face 30 04/18/17 07:55 Bi-pap 30 04/18/17 04:56 101 31 95 Full Face 30 04/18/17 04:00 30 04/18/17 04:00 124 04/18/17 04:00 97.9 130 32 131/76 95 Bi-pap 30 04/18/17 03:02 110 29 92 Full Face 30 04/18/17 03:00 102 31 92 Bi-pap 30 04/18/17 03:00 Bi-pap 30 04/18/17 00:58 107 36 96 Full Face 30 04/18/17 00:00 30 04/18/17 00:00 116 04/18/17 00:00 98.1 125 21 124/62 100 Bi-pap 35 04/17/17 22:52 121 31 93 Full Face 30 04/17/17 21:08 101 23 93 04/17/17 20:28 119 04/17/17 20:00 15.0 100 04/17/17 20:00 126 18 136/73 100 Bi-pap 04/17/17 20:00 98.0 129 24 134/79 100 Non-Rebreather 15.0 100 04/17/17 19:16 98.2 126 18 136/73 100 3.0 30 04/17/17 19:04 124 20 92 Full Face 30 04/17/17 17:28 30 04/17/17 17:24 125 19 97 Full Face 30 04/17/17 17:00 125 23 125/95 92 Bi-pap 30 04/17/17 15:15 40 04/17/17 15:00 98 23 126/68 92 Nasal Cannula 3.0 04/17/17 15:00 118 26 93 Full Face 40 04/17/17 13:43 80 24 99 Room Air 04/17/17 13:38 78 24 Room Air 04/17/17 13:35 74 24 99 Non-Rebreather 100 04/17/17 13:15 87 24 04/17/17 13:15 87 24 142/61 90 Nasal Cannula 3.0 04/17/17 12:25 98.2 87 20 150/55 92 Nasal Cannula 6.0 Intake and Output 04/17/17 04/18/17 19:00 07:00 Intake Total 360 ml Output Total 2800 ml Balance -2440 ml Intake Oral 360 ml Output Urine Total 2800 ml # Voids 1 Laboratory Tests Test 04/17/17 13:30 04/17/17 16:30 04/17/17 17:00 04/18/17 06:05 White Blood Count 9.0 K/UL (4.8-10.8) 6.4 K/UL (4.8-10.8) Red Blood Count 4.23 M/UL (4.20-5.40) 4.22 M/UL (4.20-5.40) Hemoglobin 13.7 G/DL (12.0-16.0) 14.0 G/DL (12.0-16.0) Hematocrit 43.7 % (37.0-47.0) 43.3 % (37.0-47.0) Mean Corpuscular Volume 103 FL (80-99) H 103 FL (80-99) H Mean Corpuscular Hemoglobin 32.4 PG (27.0-31.0) H 33.2 PG (27.0-31.0) H Mean Corpuscular Hemoglobin Concent 31.4 G/DL (32.0-36.0) L 32.4 G/DL (32.0-36.0) Red Cell Distribution Width 16.0 % (11.6-14.8) H 15.4 % (11.6-14.8) H Platelet Count 113 K/UL (150-450) L 116 K/UL (150-450) L Mean Platelet Volume 9.2 FL (6.5-10.1) 8.9 FL (6.5-10.1) Neutrophils (%) (Auto) 62.5 % (45.0-75.0) 79.5 % (45.0-75.0) H Lymphocytes (%) (Auto) 24.8 % (20.0-45.0) 15.2 % (20.0-45.0) L Monocytes (%) (Auto) 10.3 % (1.0-10.0) H 4.9 % (1.0-10.0) Eosinophils (%) (Auto) 1.5 % (0.0-3.0) 0.0 % (0.0-3.0) Basophils (%) (Auto) 0.9 % (0.0-2.0) 0.4 % (0.0-2.0) Prothrombin Time 11.3 SEC (9.30-11.50) Prothromb Time International Ratio 1.1 (0.9-1.1) Activated Partial Thromboplast Time 27 SEC (23-33) Sodium Level 143 MMOL/L (136-145) 142 MMOL/L (136-145) Potassium Level 5.5 MMOL/L (3.5-5.1) H 4.4 MMOL/L (3.5-5.1) Chloride Level 98 MMOL/L (98-107) 97 MMOL/L (98-107) L Carbon Dioxide Level 45 MMOL/L (21-32) *H > 45 MMOL/L (21-32) *H Anion Gap 1 mmol/L (5-15) L Blood Urea Nitrogen 38 mg/dL (7-18) H 36 mg/dL (7-18) H Creatinine 1.3 MG/DL (0.55-1.30) 1.2 MG/DL (0.55-1.30) Estimat Glomerular Filtration Rate mL/min (>60) mL/min (>60) Glucose Level 324 MG/DL (74-106) H 363 MG/DL (74-106) H Calcium Level 9.2 MG/DL (8.5-10.1) 9.4 MG/DL (8.5-10.1) Total Bilirubin 0.4 MG/DL (0.2-1.0) Aspartate Amino Transf (AST/SGOT) 31 U/L (15-37) Alanine Aminotransferase (ALT/SGPT) 35 U/L (12-78) Alkaline Phosphatase 42 U/L (46-116) L Total Creatine Kinase 35 U/L (26-308) Troponin I 0.107 ng/mL (0.000-0.056) 0.190 ng/mL (0.000-0.056) Pro-B-Type Natriuretic Peptide 3982 pg/mL (0-125) H 4992 pg/mL (0-125) H Total Protein 6.9 G/DL (6.4-8.2) Albumin 3.1 G/DL (3.4-5.0) L 2.8 G/DL (3.4-5.0) L Globulin 3.8 g/dL Albumin/Globulin Ratio 0.8 (1.0-2.7) L Urine Color Pale yellow Urine Appearance Clear Urine pH 6 (4.5-8.0) Urine Specific [place] 1.010 (1.005-1.035) Urine Protein 1+ (NEGATIVE) H Urine Glucose (UA) Negative (NEGATIVE) Urine Ketones Negative (NEGATIVE) Urine Occult Blood 1+ (NEGATIVE) H Urine Nitrite Negative (NEGATIVE) Urine Bilirubin Negative (NEGATIVE) Urine Urobilinogen Normal MG/DL (0.0-1.0) Urine Leukocyte Esterase 1+ (NEGATIVE) H Urine RBC 0-2 /HPF (0 - 2) Urine WBC 2-4 /HPF (0 - 2) Urine Squamous Epithelial Cells Few /LPF (NONE/OCC) Urine Bacteria Few /HPF (NONE) Venous Blood pH Pending Venous Blood Partial Pressure CO2 Pending Venous Blood Partial Pressure O2 Pending Venous Blood HCO3 Pending Venous Blood Total Carbon Dioxide Pending Venous Bld O2 Saturation (Measured) 67.9 Venous Blood Oxygen Saturation Pending Venous Blood Base Excess Pending Methemoglobin Pending Sodium (Blood Gas) mmol/l (135-148) Hemoglobin A1c 8.2 % (4.3-6.0) H Phosphorus Level 3.9 MG/DL (2.5-4.9) Magnesium Level 2.0 MG/DL (1.8-2.4) Triglycerides Level 62 MG/DL (30-150) Cholesterol Level 117 MG/DL (< 200) LDL Cholesterol 59 mg/dL (<100) HDL Cholesterol 50 MG/DL (40-60) Cholesterol/HDL Ratio 2.3 (3.3-4.4) L Thyroid Stimulating Hormone (TSH) 0.444 uiU/mL (0.358-3.740) Test 04/18/17 07:55 Arterial Blood pH 7.462 (7.350-7.450) Arterial Blood Partial Pressure CO2 68.3 mmHg (35.0-45.0) *H Arterial Blood Partial Pressure O2 77.1 mmHg (75.0-100.0) Arterial Blood HCO3 47.7 mmol/L (22.0-26.0) H Arterial Blood Oxygen Saturation 95.5 % (92.0-98.0) Arterial Blood Base Excess 19.8 Valeriano Test Positive RENETTA PHAM Apr 18, 2017 11:02
[2017-04-18 12:00] VITALS: BP 120/55
--- NOTE | 2017-04-18 13:54 | Pulmonology Progress Note ---
Assessment/Plan Problems: (1) Acute on chronic diastolic (congestive) heart failure (2) NSTEMI (non-ST elevated myocardial infarction) (3) Chronic diastolic (congestive) heart failure (4) DM2 (diabetes mellitus, type 2) Assessment/Plan diuresed 2400 prn BIPAP check electrolytes check pace maker watch bun/creatinine might dc lasix IV tomorrow sliding scale Subjective ROS Limited/Unobtainable: No Respiratory: Reports: no symptoms Allergies: Coded Allergies: No Known Allergies (Unverified , 04/17/17) Objective Last 24 Hour Vital Signs Date Time Temp Pulse Resp B/P (MAP) Pulse Ox O2 Delivery O2 Flow Rate FiO2 04/18/17 12:55 92 20 97 Full Face 30 04/18/17 12:00 97.5 72 18 120/55 94 Nasal Cannula 3.0 04/18/17 11:55 73 22 97 Nasal Cannula 2.0 28 04/18/17 11:48 78 22 98 04/18/17 11:47 79 20 98 Nasal Cannula 2.0 28 04/18/17 11:42 74 04/18/17 09:36 150 117/51 04/18/17 09:18 107 22 95 Full Face 30 04/18/17 08:00 30 04/18/17 08:00 92 04/18/17 08:00 97.8 150 21 117/51 95 Bi-pap 30 04/18/17 07:55 104 20 95 Bi-pap 30 04/18/17 07:55 104 20 96 Full Face 30 04/18/17 07:55 Bi-pap 30 04/18/17 04:56 101 31 95 Full Face 30 04/18/17 04:00 30 04/18/17 04:00 124 04/18/17 04:00 97.9 130 32 131/76 95 Bi-pap 30 04/18/17 03:02 110 29 92 Full Face 30 04/18/17 03:00 102 31 92 Bi-pap 30 04/18/17 03:00 Bi-pap 30 04/18/17 00:58 107 36 96 Full Face 30 04/18/17 00:00 30 04/18/17 00:00 116 04/18/17 00:00 98.1 125 21 124/62 100 Bi-pap 35 04/17/17 22:52 121 31 93 Full Face 30 04/17/17 21:08 101 23 93 04/17/17 20:28 119 04/17/17 20:00 15.0 100 04/17/17 20:00 126 18 136/73 100 Bi-pap 04/17/17 20:00 98.0 129 24 134/79 100 Non-Rebreather 15.0 100 04/17/17 19:16 98.2 126 18 136/73 100 3.0 30 04/17/17 19:04 124 20 92 Full Face 30 04/17/17 17:28 30 04/17/17 17:24 125 19 97 Full Face 30 04/17/17 17:00 125 23 125/95 92 Bi-pap 30 04/17/17 15:15 40 04/17/17 15:00 98 23 126/68 92 Nasal Cannula 3.0 04/17/17 15:00 118 26 93 Full Face 40 Intake and Output 04/17/17 04/18/17 19:00 07:00 Intake Total 360 ml Output Total 2800 ml Balance -2440 ml Intake Oral 360 ml Output Urine Total 2800 ml # Voids 1 HEENT: normocephalic, atraumatic Respiratory/Chest: crackles/rales Breasts: no masses Cardiovascular: normal peripheral pulses, regular rhythm Abdomen: soft, non tender, non distended Extremities: no clubbing Laboratory Tests 04/17/17 16:30: Urine Color Pale yellow, Urine Appearance Clear, Urine pH 6, Urine Specific [place] 1.010, Urine Protein 1+H, Urine Glucose (UA) Negative, Urine Ketones Negative, Urine Occult Blood 1+H, Urine Nitrite Negative, Urine Bilirubin Negative, Urine Urobilinogen Normal, Urine Leukocyte Esterase 1+H, Urine RBC 0-2 , Urine WBC 2-4, Urine Squamous Epithelial Cells Few, Urine Bacteria Few 04/17/17 17:00: Venous Blood pH [Pending], Venous Blood Partial Pressure CO2 [Pending], Venous Blood Partial Pressure O2 [Pending], Venous Blood HCO3 [Pending], Venous Blood Total Carbon Dioxide [Pending], Venous Bld O2 Saturation (Measured) 67.9, Venous Blood Oxygen Saturation [Pending], Venous Blood Base Excess [Pending], Methemoglobin [Pending], Sodium (Blood Gas) 04/18/17 06:05: White Blood Count 6.4, Red Blood Count 4.22, Hemoglobin 14.0, Hematocrit 43.3, Mean Corpuscular Volume 103H, Mean Corpuscular Hemoglobin 33.2H, Mean Corpuscular Hemoglobin Concent 32.4, Red Cell Distribution Width 15.4H, Platelet Count 116L, Mean Platelet Volume 8.9, Neutrophils (%) (Auto) 79.5H, Lymphocytes (%) (Auto) 15.2L, Monocytes (%) (Auto) 4.9, Eosinophils (%) (Auto) 0.0, Basophils (%) (Auto) 0.4, Sodium Level 142, Potassium Level 4.4, Chloride Level 97L, Carbon Dioxide Level > 45*H, Blood Urea Nitrogen 36H, Creatinine 1.2 , Estimat Glomerular Filtration Rate , Glucose Level 363H, Hemoglobin A1c 8.2H, Calcium Level 9.4, Phosphorus Level 3.9, Magnesium Level 2.0, Troponin I 0.190H , Pro-B-Type Natriuretic Peptide 4992H, Albumin 2.8L, Triglycerides Level 62, Cholesterol Level 117, LDL Cholesterol 59, HDL Cholesterol 50, Cholesterol/HDL Ratio 2.3L, Thyroid Stimulating Hormone (TSH) 0.444 04/18/17 07:55: Arterial Blood pH 7.462H, Arterial Blood Partial Pressure CO2 68.3*H, Arterial Blood Partial Pressure O2 77.1, Arterial Blood HCO3 47.7H, Arterial Blood Oxygen Saturation 95.5, Arterial Blood Base Excess 19.8, Valeriano Test Positive Current Medications Medications (Trade) Dose Ordered Sig/[place] Route PRN Reason Start Time Stop Time Status Last Admin Dose Admin Acetaminophen (Tylenol) 650 mg Q4H PRN ORAL Fever (temp>100.5F) 04/17/17 16:00 05/17/17 15:59 04/17/17 22:16 Aspirin (Ecotrin) 81 mg DAILY ORAL 04/18/17 09:00 05/18/17 08:59 04/18/17 09:33 Atorvastatin Calcium (Lipitor) 80 mg BEDTIME ORAL 04/17/17 21:00 05/17/17 20:59 04/17/17 22:00 Dextrose (Dextrose 50%) STAT PRN IV Hypoglycemia 04/17/17 19:45 05/17/17 19:44 Folic Acid (Folate) 1 mg DAILY ORAL 04/18/17 09:00 05/18/17 08:59 04/18/17 09:34 Furosemide (Lasix) 40 mg EVERY 8 HOURS IV 04/17/17 16:00 05/17/17 15:59 04/18/17 13:41 Gabapentin (Neurontin) 600 mg THREE TIMES A DAY ORAL 04/18/17 09:00 05/18/17 08:59 04/18/17 09:33 Heparin Sodium (Porcine) (Heparin 5000 units/ml) 5,000 units EVERY 12 HOURS SUBQ 04/17/17 21:00 05/17/17 20:59 04/18/17 09:37 Insulin Aspart (NovoLOG) BEFORE MEALS AND HS SUBQ 04/17/17 21:00 05/17/17 20:59 04/18/17 11:43 Ipratropium [place] (Atrovent) 500 mcg Q4H PRN HHN SOB, wheezing 04/17/17 17:00 04/22/17 16:59 Ipratropium [place] (Atrovent) 500 mcg Q4HRT HHN 04/17/17 18:00 04/22/17 17:59 04/18/17 11:48 Levothyroxine Sodium (Synthroid) 50 mcg DAILY@0630 ORAL 04/18/17 06:30 05/18/17 06:29 04/18/17 06:29 Lorazepam (Ativan) 0.5 mg Q8HR PRN ORAL For Anxiety 04/18/17 13:00 04/25/17 12:59 Metoprolol Succinate (Toprol XL) 50 mg Q12HR ORAL 04/18/17 21:00 05/18/17 20:59 Ondansetron HCl (Zofran) 4 mg Q6H PRN IVP Nausea & Vomiting 04/17/17 16:00 05/17/17 15:59 Polyethylene Glycol (Miralax) 17 gm DAILYPRN PRN ORAL Constipation 04/17/17 16:00 05/17/17 15:59 Sitagliptin Phosphate (Januvia) 50 mg ACBREAKFAST ORAL 04/18/17 06:30 05/18/17 06:29 04/18/17 06:29 Temazepam (Restoril) 15 mg HSPRN PRN ORAL Insomnia 04/17/17 16:00 04/24/17 15:59 Tiotropium [place] (Spiriva Inhaler) 1 puff DAILY INH 2/8/18 09:00 05/18/17 08:59 04/18/17 09:59 JONI MADERA Apr 18, 2017 13:54
[2017-04-18 16:00] VITALS: BP 116/70
--- NOTE | 2017-04-18 17:07 | Diagnostic Imaging Report ---
Indication: DYSPNEA Technique: One view of the chest Comparison: 04/17/2017 Findings: Heart size and mediastinal contours are stable. Left-sided dual-lead pacer unchanged. Left upper lobe calcified granulomas unchanged. Persistent generalized interstitial prominence. No new focal consolidation. No large pleural effusion or pneumothorax. Impression: No significant interval change in appearance of the heart and lungs compared to exam one day prior.
[2017-04-18 20:00] VITALS: BP 99/49
[2017-04-18] MEDS: Metoprolol Succinate XL 50mg tab ORAL SCH (21:11)
[2017-04-18] MEDS: LORazepam 0.5mg tab ORAL PRN (21:11)
[2017-04-18] MEDS: Atorvastatin 80mg tab ORAL SCH (21:11)
--- NOTE | 2017-04-18 22:23 | General Progress Note ---
Assessment/Plan Problem List: (1) Acute and chronic respiratory failure with hypoxia ICD Codes: J96.21 - Acute and chronic respiratory failure with hypoxia SNOMED: 200518910, 659473008 (2) Acute on chronic diastolic (congestive) heart failure ICD Codes: I50.33 - Acute on chronic diastolic (congestive) heart failure SNOMED: 80806588, 574331809 (3) Aflutter with RVR (4) NSTEMI (non-ST elevated myocardial infarction) ICD Codes: I21.4 - Non-ST elevation (NSTEMI) myocardial infarction SNOMED: 283369822 (5) chronic hypercapnea with alveolar hypoventilation (on BiPAP qHS and PRN at home) (6) Moderate to severe pulmonary hypertension ICD Codes: I27.20 - Pulmonary hypertension, unspecified SNOMED: 42075065 (7) Obesity ICD Codes: E66.9 - Obesity, unspecified SNOMED: 965472846 (8) Hypothyroidism ICD Codes: E03.9 - Hypothyroidism, unspecified SNOMED: 00472086 (9) H/O: CVA (cerebrovascular accident) ICD Codes: Z86.73 - Personal history of transient ischemic attack (TIA), and cerebral infarction without residual deficits SNOMED: 579748383 (10) SSS s/p PPM (11) DM2 (diabetes mellitus, type 2) ICD Codes: E11.9 - Type 2 diabetes mellitus without complications SNOMED: 51318357 Qualifiers: Qualified Codes: E11.8 - Type 2 diabetes mellitus with unspecified complications; Z79.4 - keno terminal operator (current) use of insulin (12) Hyperkalemia ICD Codes: E87.5 - Hyperkalemia SNOMED: 90396951 Status: stable Assessment/Plan Pulm and cardiology consulted Trend trop/EKG F/u TTE--EF 70-70%, incr RA pressures Cont BiPAP 15/15, RR 18, titrate FIO2 to O2 sat 91-93% Atrovent ATC and PRN Trend ABG Lasix 40mg IV for I/Os goal -1 to 1.5L Strict I/O's, daily weights Monitor BMP, replete lytes as needed Cont home meds but hold micardis given hyperkalemia, likely resume on d/c YANICK Pain control, bowel regimen Supportive care DVT Prophylaxis: SCD, HSQ Code Status: Full Hospital Classification Declaration: Based on this initial evaluation, and depending on the patient's clinical course, I anticipate that this patient will require hospitalization for 1-2 days for hypoxia, CHF and close respiratory/ hemodynamic monitoring. Disposition: Once the patient is stable to leave the hospital, I anticipate the patient will likely be discharged to the following environment: home with HH + CG Discussed with patient/family, nursing staff, SW/CM, pulm, cardiology regarding clinical status, treatment course, and disposition planning. D/w caregiver and son extensively regarding plan of care. Time of note may not reflect time of encounter. Subjective Date patient seen: Apr 18, 2017 Time patient seen: 10:52 ROS Limited/Unobtainable: No Constitutional: Reports: weakness HEENT: Reports: no symptoms Cardiovascular: Reports: no symptoms Respiratory: Reports: cough, shortness of breath Gastrointestinal/Abdominal: Reports: no symptoms Genitourinary: Reports: no symptoms Neurologic/Psychiatric: Reports: anxiety Endocrine: Reports: no symptoms Hematologic/Lymphatic: Reports: no symptoms Allergies: Coded Allergies: No Known Allergies (Unverified , 04/17/17) All Systems: reviewed and negative except above Subjective No acute o/n events Diuresing well Using BiPAP Pt states she feels better. SOB improving. Hypoxia improved D/w caregiver and son. Pt to cont BiPAP during day as tolerated. Objective Last 24 Hour Vital Signs Date Time Temp Pulse Resp B/P (MAP) Pulse Ox O2 Delivery O2 Flow Rate FiO2 04/18/17 21:11 71 116/70 04/18/17 20:55 71 20 94 Full Face 30 04/18/17 19:20 71 23 96 Bi-pap 30 04/18/17 19:09 72 24 95 Full Face 30 04/18/17 19:09 73 24 95 Nasal Cannula 3.0 32 04/18/17 16:44 77 22 95 Full Face 30 04/18/17 16:00 98.0 71 21 116/70 93 Bi-pap 30 04/18/17 15:46 72 04/18/17 15:10 76 20 98 Nasal Cannula 2.0 28 04/18/17 14:59 70 18 97 Bi-pap 30 04/18/17 14:59 70 20 96 Full Face 30 04/18/17 12:55 92 20 97 Full Face 30 04/18/17 12:00 97.5 72 18 120/55 94 Nasal Cannula 3.0 04/18/17 11:55 73 22 97 Nasal Cannula 2.0 28 04/18/17 11:48 78 22 98 04/18/17 11:47 79 20 98 Nasal Cannula 2.0 28 04/18/17 11:42 74 04/18/17 09:36 150 117/51 04/18/17 09:18 107 22 95 Full Face 30 04/18/17 08:00 30 04/18/17 08:00 92 04/18/17 08:00 97.8 150 21 117/51 95 Bi-pap 30 04/18/17 07:55 104 20 95 Bi-pap 30 04/18/17 07:55 104 20 96 Full Face 30 04/18/17 07:55 Bi-pap 30 04/18/17 04:56 101 31 95 Full Face 30 04/18/17 04:00 30 04/18/17 04:00 124 04/18/17 04:00 97.9 130 32 131/76 95 Bi-pap 30 04/18/17 03:02 110 29 92 Full Face 30 04/18/17 03:00 102 31 92 Bi-pap 30 04/18/17 03:00 Bi-pap 30 04/18/17 00:58 107 36 96 Full Face 30 04/18/17 00:00 30 04/18/17 00:00 116 04/18/17 00:00 98.1 125 21 124/62 100 Bi-pap 35 04/17/17 22:52 121 31 93 Full Face 30 Intake and Output 04/17/17 04/18/17 19:00 07:00 Intake Total 360 ml Output Total 2800 ml Balance -2440 ml Intake Oral 360 ml Output Urine Total 2800 ml # Voids 1 Laboratory Tests 04/18/17 06:05: White Blood Count 6.4, Red Blood Count 4.22, Hemoglobin 14.0, Hematocrit 43.3, Mean Corpuscular Volume 103H, Mean Corpuscular Hemoglobin 33.2H, Mean Corpuscular Hemoglobin Concent 32.4, Red Cell Distribution Width 15.4H, Platelet Count 116L, Mean Platelet Volume 8.9, Neutrophils (%) (Auto) 79.5H, Lymphocytes (%) (Auto) 15.2L, Monocytes (%) (Auto) 4.9, Eosinophils (%) (Auto) 0.0, Basophils (%) (Auto) 0.4, Sodium Level 142, Potassium Level 4.4, Chloride Level 97L, Carbon Dioxide Level > 45*H, Blood Urea Nitrogen 36H, Creatinine 1.2 , Estimat Glomerular Filtration Rate , Glucose Level 363H, Hemoglobin A1c 8.2H, Calcium Level 9.4, Phosphorus Level 3.9, Magnesium Level 2.0, Troponin I 0.190H , Pro-B-Type Natriuretic Peptide 4992H, Albumin 2.8L, Triglycerides Level 62, Cholesterol Level 117, LDL Cholesterol 59, HDL Cholesterol 50, Cholesterol/HDL Ratio 2.3L, Thyroid Stimulating Hormone (TSH) 0.444 04/18/17 07:55: Arterial Blood pH 7.462H, Arterial Blood Partial Pressure CO2 68.3*H, Arterial Blood Partial Pressure O2 77.1, Arterial Blood HCO3 47.7H, Arterial Blood Oxygen Saturation 95.5, Arterial Blood Base Excess 19.8, Valeriano Test Positive 04/18/17 14:15: Troponin I 0.342H 04/18/17 21:40: Troponin I [Pending] Height (Feet): 5 Height (Inches): 3.00 Weight (Pounds): 180 Objective General: alert, cooperative, no distress, appears stated age Head: normocephalic, without obvious abnormality, atraumatic Eyes: conjunctivae/corneas clear. PERRL, EOM's intact Throat: lips, mucosa, and tongue normal. MMM Neck: supple, symmetrical, trachea midline, and +JVD Lungs: decreased breath sounds b/l Heart: regular rate and rhythm, S1, S2 normal, no murmur, click, rub or gallop Abdomen: soft, non-tender, non-distended, bowel sounds normal Extremities: extremities normal, atraumatic, no cyanosis, 1-2+ pitting edema up to BLE knees Pulses: 2+ and symmetric Skin: skin color, texture, turgor normal; no rashes or lesions Neurologic: grossly normal, no focal deficits Sergio Felix M.D. Apr 18, 2017 22:23
[2017-04-19] VITALS (7 sets, daily range): BP systolic 88–117; BP diastolic 41–60
--- NOTE | 2017-04-19 02:30 | Consultation ---
DATE OF CONSULTATION: 04/18/2017 NOTE: POOR AUDIO CARDIOLOGY CONSULTATION CONSULTING PHYSICIAN: Elder Love M.D. REFERRING PHYSICIAN: Dolores Orellana M.D. REASON FOR CONSULTATION: Atrial flutter, pacemaker, and congestive heart failure. HISTORY OF PRESENT ILLNESS: The patient is a very pleasant 87-year-old lady with history of hypertension, atrial flutter, chronic diastolic congestive heart failure, and diabetes as well as COPD, on home oxygen, as well as history of CVA and permanent pacemaker placement at [facility] two years ago, who was recently admitted to [facility] from 02/20/2017 through 02/22/2017 for chest pain. The patient underwent CT coronary angiogram that showed increased plaque burden, but not critical stenosis. The patient was brought to the emergency room for increasing shortness of breath even though she was compliant with BiPAP. The patient's coffee shop aide, at [facility]. Lasix was increased secondary to fluid overload recently. In the emergency room, the patient was hypoxic with saturation down to 70% on room air, was placed on BiPAP and received 40 mg of IV Lasix. Her troponin was also elevated at 0.107. Her EKG also showed atrial flutter with rapid ventricular response with the heart rate up to 120s. PAST MEDICAL HISTORY: As mentioned above. MEDICATIONS: Aspirin, Lasix, insulin, metoprolol, Crestor, and Micardis. The patient is not on full anticoagulation. FAMILY HISTORY: Noncontributory. SOCIAL HISTORY: She lives at home with a caregiver. Does not smoke or drink alcohol. REVIEW OF SYSTEMS: Review of systems was performed that was negative other than what was mentioned in the history of present illness. PHYSICAL EXAMINATION: VITAL SIGNS: Blood pressure is 117/51, pulse was up to 150, respirations 18, and she is afebrile. HEAD AND NECK: No JVD. LUNGS: Decreased breath sounds. CARDIOVASCULAR: Irregular, tachycardic. S1 and S2 with no gallop or murmur. Pacemaker is in left subclavian. ABDOMEN: Soft. EXTREMITIES: Bilateral 2+ pitting edema. LABORATORY AND DIAGNOSTIC DATA: Labs show white count of 6.4, hemoglobin of 14, hematocrit 43.3, and platelet count of 116. Sodium 142, potassium 4.4, BUN of 36, creatinine 1.2, and glucose of 363. Troponin is 0.10 and 0.19. BNP is 4992. ASSESSMENT AND PLAN: 1. Troponin leak. This is likely due to the patient's atrial flutter with rapid ventricular response and azotemia. Continue aspirin and increase metoprolol to 50 mg b.i.d. for better rate control. I will check a fasting lipid profile and get an echocardiogram. 2. Congestive heart failure with diastolic dysfunction as well as atrial flutter with rapid ventricular response. Started Lasix 40 mg IV every eight hours. Metoprolol will be increased for better rate control. It is of note that the patient is not on full anticoagulation and needs to be on Coumadin oral anticoagulants for thromboembolic prophylaxis contraindication. 3. Hypertension, on Toprol and Lasix. 4. Chronic obstructive pulmonary disease, on Atrovent and Proventil and oxygen. 5. Diabetes, on Januvia. 6. Hypothyroidism, on Synthroid. 7. Status post pacemaker implantation. We will try to find the brand name of the pacemaker and interrogate that. 8. In regards to atrial flutter, the patient probably would benefit from atrial flutter ablation approach, but needs transesophageal echocardiogram as she has not been anticoagulated. Thank you very much, Dr. Orellana, for allowing me to participate in the care of this patient. Please do not hesitate to contact me if you have any questions regarding my evaluation. Elder Love M.D. DR: AUTUMN JOB#: [id number] CC:
[2017-04-19] MEDS: Ipratropium 0.02% Inh Soln 2.5ml UD HHN SCH ×6 (03:07→23:43)
[2017-04-19 04:50] LABS: BASOPHILS % (AUTO) 0.9 % (0.0-2.0); HEMATOCRIT 43.9 % (37.0-47.0); HEMOGLOBIN 13.9 G/DL (12.0-16.0); LYMPHOCYTES % (AUTO) 28.2 % (20.0-45.0); MEAN CORPUSCULAR VOLUME 103 FL (80-99); MONOCYTES % (AUTO) 9.9 % (1.0-10.0); NEUTROPHILS % (AUTO) 57.1 % (45.0-75.0); PLATELET COUNT 136 K/UL (150-450); RED BLOOD COUNT 4.26 M/UL (4.20-5.40); RED CELL DISTRIBUTION WIDTH 15.9 % (11.6-14.8); WHITE BLOOD COUNT 9.7 K/UL (4.8-10.8)
[2017-04-19 05:13] LABS: ALANINE AMINOTRANSFERASE 27 U/L (12-78); ALBUMIN 2.6 G/DL (3.4-5.0); ALBUMIN/GLOBULIN RATIO 0.8 (1.0-2.7); ALKALINE PHOSPHATASE 36 U/L (46-116); ASPARTATE AMINO TRANSFERASE 31 U/L (15-37); BILIRUBIN,TOTAL 0.3 MG/DL (0.2-1.0); BLOOD UREA NITROGEN 38 mg/dL (7-18); CHLORIDE 97 MMOL/L (98-107); POTASSIUM 3.8 MMOL/L (3.5-5.1); SODIUM 143 MMOL/L (136-145)
[2017-04-19 05:14] LABS: PHOSPHORUS 4.6 MG/DL (2.5-4.9)
[2017-04-19 05:18] LABS: CARBON DIOXIDE 51 MMOL/L (21-32)
[2017-04-19] MEDS: sitaGLIPtin 50mg tab ORAL SCH (06:08)
[2017-04-19] MEDS: NovoLOG Insulin Flexpen SUBQ SCH ×4 (06:09→20:58)
--- NOTE | 2017-04-19 06:33 | Cardiology Report ---
APPROVED REPORT EXAM: Two-dimensional and M-mode echocardiogram with Doppler and color Doppler. INDICATION Supraventric Tachycardia M-Mode DIMENSIONS IVSd1.0 (0.7-1.1cm)Left Atrium (MM)4.6 (1.6-4.0cm) LVDd3.4 (3.5-5.6cm)Aortic Root2.5 (2.0-3.7cm) PWd1.2 (0.7-1.1cm)Aortic Cusp Exc.1.4 (1.5-2.0cm) LVDs1.0 (2.5-4.0cm) PWs2.2 cm Technically difficult study due to poor acoustical windows. Normal left ventricular chamber size, systolic function and wall motion. Left ventricular ejection fraction estimated to be 70-75%. No evidence of left ventricular hypertrophy. Moderate posterior pericardial effusion. Mild left atrial enlargement by 2D. Focal aortic valve sclerosis with adequate cusp excursion. Thickened mitral valve leaflets with normal excursion. Mild mitral annulus and aortic root calcification. Pulmonic valve not well visualized. Normal tricuspid valve structure. IVC dilated at 2.3 cm and non-collapsible with respiration indicate increased RA pressure. RA pressure of 20mmHg. Probable pacemaker wire present in the right side chambers. A color flow and spectral Doppler study was performed and revealed: No aortic regurgitation. No mitral regurgitation. Mitral diastolic velocities suggest reduced left ventricular relaxation c/w diastolic dysfunction grade 1. No tricuspid regurgitation. Tricuspid systolic velocities suggests peak right ventricular systolic pressure of 22 mmHg
[2017-04-19] MEDS: Metoprolol Succinate XL 50mg tab ORAL SCH ×2 (08:56→16:00)
[2017-04-19] MEDS: Heparin 5000 units/ml inj SUBQ SCH (09:09)
[2017-04-19] MEDS: Aspirin EC 81mg tab ORAL SCH (09:09)
--- NOTE | 2017-04-19 10:39 | Diagnostic Imaging Report ---
Indication: Dyspnea Technique: One view of the chest Comparison: 04/18/2017 Findings: There is new/increased left lateral basilar opacification, likely pleural fluid. Calcified granuloma and scarring is again demonstrated in the left lung apex. Right lung pleural space remain clear. A calcification is seen inferior to the right shoulder. There is an ununited fracture deformity of the right shoulder, better demonstrated currently. There is a pacemaker Impression: New/increased left lateral basilar opacification, may indicate some pleural fluid or consolidation. Correlate with clinical findings
--- NOTE | 2017-04-19 10:58 | Pulmonology Progress Note ---
Assessment/Plan Problems: (1) Acute on chronic diastolic (congestive) heart failure (2) NSTEMI (non-ST elevated myocardial infarction) (3) Chronic diastolic (congestive) heart failure (4) DM2 (diabetes mellitus, type 2) Assessment/Plan diuresed 4,550 prn BIPAP check electrolytes check pace maker watch bun/creatinine, stable sofar hold lopressor if sbp less than 120 continue lasix IV for today sliding scale Subjective ROS Limited/Unobtainable: No Interval Events: back on bipap again Constitutional: Reports: no symptoms HEENT: Repors: no symptoms Respiratory: Reports: no symptoms Allergies: Coded Allergies: No Known Allergies (Unverified , 04/17/17) Objective Last 24 Hour Vital Signs Date Time Temp Pulse Resp B/P (MAP) Pulse Ox O2 Delivery O2 Flow Rate FiO2 04/19/17 08:59 72 18 97 Full Face 30 04/19/17 08:56 78 91/45 04/19/17 08:00 97.9 78 18 91/45 96 Bi-pap 30 04/19/17 08:00 71 04/19/17 07:17 71 18 97 Bi-pap 30 04/19/17 07:10 72 18 97 Full Face 30 04/19/17 07:10 72 18 97 Bi-pap 30 04/19/17 05:12 73 21 97 Full Face 30 04/19/17 04:00 97.3 70 18 104/60 95 Bi-pap 30 04/19/17 03:53 71 04/19/17 03:17 71 18 98 Bi-pap 30 04/19/17 03:07 70 18 95 Bi-pap 30 04/19/17 03:07 70 18 95 Full Face 30 04/19/17 01:04 73 18 95 Full Face 30 04/19/17 00:00 98.2 73 24 102/54 97 Bi-pap 30 04/18/17 23:53 72 04/18/17 23:22 73 19 97 Bi-pap 30 04/18/17 23:14 73 19 97 Full Face 30 04/18/17 23:14 73 19 97 Bi-pap 30 04/18/17 21:11 71 116/70 04/18/17 20:55 71 20 94 Full Face 30 04/18/17 20:00 70 04/18/17 20:00 98.1 72 19 99/49 96 Bi-pap 30 04/18/17 19:20 71 23 96 Bi-pap 30 04/18/17 19:09 72 24 95 Full Face 30 04/18/17 19:09 73 24 95 Nasal Cannula 3.0 32 04/18/17 16:44 77 22 95 Full Face 30 04/18/17 16:00 98.0 71 21 116/70 93 Bi-pap 30 04/18/17 15:46 72 04/18/17 15:10 76 20 98 Nasal Cannula 2.0 28 04/18/17 14:59 70 18 97 Bi-pap 30 04/18/17 14:59 70 20 96 Full Face 30 04/18/17 12:55 92 20 97 Full Face 30 04/18/17 12:00 97.5 72 18 120/55 94 Nasal Cannula 3.0 04/18/17 11:55 73 22 97 Nasal Cannula 2.0 28 04/18/17 11:48 78 22 98 04/18/17 11:47 79 20 98 Nasal Cannula 2.0 28 04/18/17 11:42 74 Intake and Output 04/18/17 04/19/17 19:00 07:00 Intake Total 250 ml 240 ml Output Total 1400 ml 1200 ml Balance -1150 ml -960 ml Intake Oral 250 ml 240 ml Output Urine Total 1400 ml 1200 ml # Bowel Movements 2 General Appearance: WD/WN HEENT: normocephalic, atraumatic Respiratory/Chest: chest wall non-tender, lungs clear, normal breath sounds, no respiratory distress Cardiovascular: normal peripheral pulses, normal rate Abdomen: normal bowel sounds, no organomegaly Extremities: no cyanosis Laboratory Tests 04/18/17 14:15: Troponin I 0.342H 04/18/17 21:40: Troponin I 0.386H 04/19/17 03:50: Troponin I 0.269H, White Blood Count 9.7#, Red Blood Count 4.26, Hemoglobin 13.9 , Hematocrit 43.9, Mean Corpuscular Volume 103H, Mean Corpuscular Hemoglobin 32.6H, Mean Corpuscular Hemoglobin Concent 31.7L, Red Cell Distribution Width 15.9H, Platelet Count 136L, Mean Platelet Volume 8.8, Neutrophils (%) (Auto) 57.1, Lymphocytes (%) (Auto) 28.2, Monocytes (%) (Auto) 9.9, Eosinophils (%) ( Auto) 4.0H, Basophils (%) (Auto) 0.9, Sodium Level 143, Potassium Level 3.8, Chloride Level 97L, Carbon Dioxide Level 51*H, Blood Urea Nitrogen 38H, Creatinine 1.0, Estimat Glomerular Filtration Rate , Glucose Level 127#H, Calcium Level 9.0, Phosphorus Level 4.6, Magnesium Level 2.0, Total Bilirubin 0.3, Aspartate Amino Transf (AST/SGOT) 31, Alanine Aminotransferase (ALT/SGPT) 27, Alkaline Phosphatase 36L, Total Protein 5.9L, Albumin 2.6L, Globulin 3.3, Albumin/Globulin Ratio 0.8L, Thyroid Stimulating Hormone (TSH) 1.474, Free Thyroxine 1.09 04/19/17 08:08: Arterial Blood pH 7.426, Arterial Blood Partial Pressure CO2 74.4*H, Arterial Blood Partial Pressure O2 81.8, Arterial Blood HCO3 47.8H, Arterial Blood Oxygen Saturation 95.6, Arterial Blood Base Excess 19.0, Valeriano Test Positive Current Medications Medications (Trade) Dose Ordered Sig/[place] Route PRN Reason Start Time Stop Time Status Last Admin Dose Admin Acetaminophen (Tylenol) 650 mg Q4H PRN ORAL Fever (temp>100.5F) 04/17/17 16:00 05/17/17 15:59 04/17/17 22:16 Aspirin (Ecotrin) 81 mg DAILY ORAL 04/18/17 09:00 05/18/17 08:59 04/19/17 09:09 Atorvastatin Calcium (Lipitor) 80 mg BEDTIME ORAL 04/17/17 21:00 05/17/17 20:59 04/18/17 21:11 Dextrose (Dextrose 50%) STAT PRN IV Hypoglycemia 04/17/17 19:45 05/17/17 19:44 Folic Acid (Folate) 1 mg DAILY ORAL 04/18/17 09:00 05/18/17 08:59 04/19/17 09:09 Furosemide (Lasix) 40 mg EVERY 8 HOURS IV 04/17/17 16:00 05/17/17 15:59 04/19/17 06:08 Gabapentin (Neurontin) 600 mg THREE TIMES A DAY ORAL 04/18/17 09:00 05/18/17 08:59 04/19/17 09:09 Heparin Sodium (Porcine) (Heparin 5000 units/ml) 5,000 units EVERY 12 HOURS SUBQ 04/17/17 21:00 05/17/17 20:59 04/19/17 09:09 Insulin Aspart (NovoLOG) BEFORE MEALS AND HS SUBQ 04/17/17 21:00 05/17/17 20:59 04/19/17 06:09 Ipratropium Gray (Atrovent) 500 mcg Q4H PRN HHN SOB, wheezing 04/17/17 17:00 04/22/17 16:59 Ipratropium Gray (Atrovent) 500 mcg Q4HRT HHN 04/17/17 18:00 04/22/17 17:59 04/19/17 07:09 Levothyroxine Sodium (Synthroid) 50 mcg DAILY@0630 ORAL 04/18/17 06:30 05/18/17 06:29 04/19/17 06:08 Lorazepam (Ativan) 0.5 mg Q8HR PRN ORAL For Anxiety 04/18/17 13:00 04/25/17 12:59 04/18/17 21:11 Metoprolol Succinate (Toprol XL) 50 mg Q12HR ORAL 04/18/17 21:00 05/18/17 20:59 04/18/17 21:11 Ondansetron HCl (Zofran) 4 mg Q6H PRN IVP Nausea & Vomiting 04/17/17 16:00 05/17/17 15:59 Polyethylene Glycol (Miralax) 17 gm DAILYPRN PRN ORAL Constipation 04/17/17 16:00 05/17/17 15:59 Sitagliptin Phosphate (Januvia) 50 mg ACBREAKFAST ORAL 04/18/17 06:30 05/18/17 06:29 04/19/17 06:08 Temazepam (Restoril) 15 mg HSPRN PRN ORAL Insomnia 04/17/17 16:00 04/24/17 15:59 04/19/17 01:08 Tiotropium Gray (Spiriva Inhaler) 1 puff DAILY INH 04/18/17 09:00 05/18/17 08:59 04/19/17 10:12 JONI MADERA Apr 19, 2017 10:58
--- NOTE | 2017-04-19 11:49 | Cardiac Electrophysiology PN ---
Assessment/Plan Assessment/Plan 1. Troponin leak. This is likely due to the patient's atrial flutter with rapid ventricular response and azotemia. Continue aspirin and metoprolol 50 mg b.i.d. for better rate control.EF 70% 2. Congestive heart failure with diastolic dysfunction as well as atrial flutter with rapid ventricular response. On Lasix 40 mg IV every eight hours. 3. Hypertension, on Toprol and Lasix. 4. Status post BS pacemaker implantation. Will reinterrogate. 5. Atrial flutter, Likely benefit from atrial flutter ablation for a curative approach, but needs transesophageal echocardiogram as she has not been anticoagulated. 6. Chronic obstructive pulmonary disease, on Atrovent and Proventil and oxygen. 7. Diabetes, on Januvia. 8. Hypothyroidism, on Synthroid. JOHN RN and child caregiver JOHN Eng and [facility] office Subjective Subjective Feeling better. Remained in atrial flutter.Echo EF 75% Objective Last 24 Hour Vital Signs Date Time Temp Pulse Resp B/P (MAP) Pulse Ox O2 Delivery O2 Flow Rate FiO2 04/19/17 11:15 70 18 98 Nasal Cannula 4.0 36 04/19/17 11:08 71 18 97 Nasal Cannula 5.0 40 04/19/17 08:59 72 18 97 Full Face 30 04/19/17 08:56 78 91/45 04/19/17 08:00 97.9 78 18 91/45 96 Bi-pap 30 04/19/17 08:00 71 04/19/17 07:17 71 18 97 Bi-pap 30 04/19/17 07:10 72 18 97 Full Face 30 04/19/17 07:10 72 18 97 Bi-pap 30 04/19/17 05:12 73 21 97 Full Face 30 04/19/17 04:00 97.3 70 18 104/60 95 Bi-pap 30 04/19/17 03:53 71 04/19/17 03:17 71 18 98 Bi-pap 30 04/19/17 03:07 70 18 95 Bi-pap 30 04/19/17 03:07 70 18 95 Full Face 30 04/19/17 01:04 73 18 95 Full Face 30 04/19/17 00:00 98.2 73 24 102/54 97 Bi-pap 30 04/18/17 23:53 72 04/18/17 23:22 73 19 97 Bi-pap 30 04/18/17 23:14 73 19 97 Full Face 30 04/18/17 23:14 73 19 97 Bi-pap 30 04/18/17 21:11 71 116/70 04/18/17 20:55 71 20 94 Full Face 30 04/18/17 20:00 70 04/18/17 20:00 98.1 72 19 99/49 96 Bi-pap 30 04/18/17 19:20 71 23 96 Bi-pap 30 04/18/17 19:09 72 24 95 Full Face 30 04/18/17 19:09 73 24 95 Nasal Cannula 3.0 32 04/18/17 16:44 77 22 95 Full Face 30 04/18/17 16:00 98.0 71 21 116/70 93 Bi-pap 30 04/18/17 15:46 72 04/18/17 15:10 76 20 98 Nasal Cannula 2.0 28 04/18/17 14:59 70 18 97 Bi-pap 30 04/18/17 14:59 70 20 96 Full Face 30 04/18/17 12:55 92 20 97 Full Face 30 04/18/17 12:00 97.5 72 18 120/55 94 Nasal Cannula 3.0 04/18/17 11:55 73 22 97 Nasal Cannula 2.0 28 04/18/17 11:48 78 22 98 04/18/17 11:47 79 20 98 Nasal Cannula 2.0 28 04/18/17 11:42 74 Intake and Output 04/18/17 04/19/17 19:00 07:00 Intake Total 250 ml 240 ml Output Total 1400 ml 1200 ml Balance -1150 ml -960 ml Intake Oral 250 ml 240 ml Output Urine Total 1400 ml 1200 ml # Bowel Movements 2 Laboratory Tests Test 04/18/17 14:15 04/18/17 21:40 04/19/17 03:50 04/19/17 08:08 Troponin I 0.342 ng/mL (0.000-0.056) 0.386 ng/mL (0.000-0.056) 0.269 ng/mL (0.000-0.056) White Blood Count 9.7 K/UL (4.8-10.8) # Red Blood Count 4.26 M/UL (4.20-5.40) Hemoglobin 13.9 G/DL (12.0-16.0) Hematocrit 43.9 % (37.0-47.0) Mean Corpuscular Volume 103 FL (80-99) H Mean Corpuscular Hemoglobin 32.6 PG (27.0-31.0) H Mean Corpuscular Hemoglobin Concent 31.7 G/DL (32.0-36.0) L Red Cell Distribution Width 15.9 % (11.6-14.8) H Platelet Count 136 K/UL (150-450) L Mean Platelet Volume 8.8 FL (6.5-10.1) Neutrophils (%) (Auto) 57.1 % (45.0-75.0) Lymphocytes (%) (Auto) 28.2 % (20.0-45.0) Monocytes (%) (Auto) 9.9 % (1.0-10.0) Eosinophils (%) (Auto) 4.0 % (0.0-3.0) H Basophils (%) (Auto) 0.9 % (0.0-2.0) Sodium Level 143 MMOL/L (136-145) Potassium Level 3.8 MMOL/L (3.5-5.1) Chloride Level 97 MMOL/L (98-107) L Carbon Dioxide Level 51 MMOL/L (21-32) *H Blood Urea Nitrogen 38 mg/dL (7-18) H Creatinine 1.0 MG/DL (0.55-1.30) Estimat Glomerular Filtration Rate mL/min (>60) Glucose Level 127 MG/DL (74-106) #H Calcium Level 9.0 MG/DL (8.5-10.1) Phosphorus Level 4.6 MG/DL (2.5-4.9) Magnesium Level 2.0 MG/DL (1.8-2.4) Total Bilirubin 0.3 MG/DL (0.2-1.0) Aspartate Amino Transf (AST/SGOT) 31 U/L (15-37) Alanine Aminotransferase (ALT/SGPT) 27 U/L (12-78) Alkaline Phosphatase 36 U/L (46-116) L Total Protein 5.9 G/DL (6.4-8.2) L Albumin 2.6 G/DL (3.4-5.0) L Globulin 3.3 g/dL Albumin/Globulin Ratio 0.8 (1.0-2.7) L Thyroid Stimulating Hormone (TSH) 1.474 uiU/mL (0.358-3.740) Free Thyroxine 1.09 NG/DL (0.76-1.46) Arterial Blood pH 7.426 (7.350-7.450) Arterial Blood Partial Pressure CO2 74.4 mmHg (35.0-45.0) *H Arterial Blood Partial Pressure O2 81.8 mmHg (75.0-100.0) Arterial Blood HCO3 47.8 mmol/L (22.0-26.0) H Arterial Blood Oxygen Saturation 95.6 % (92.0-98.0) Arterial Blood Base Excess 19.0 Valeriano Test Positive Objective HEAD AND NECK: No JVD. LUNGS: Decreased breath sounds. CARDIOVASCULAR: Irregular S1 and S2 with no gallop or murmur. Pacemaker is in left subclavian. ABDOMEN: Soft. EXTREMITIES: Bilateral 2+ pitting edema. RENETTA PHAM Apr 19, 2017 11:49
--- NOTE | 2017-04-19 15:00 | General Progress Note ---
Assessment/Plan Problem List: (1) Acute and chronic respiratory failure with hypoxia ICD Codes: J96.21 - Acute and chronic respiratory failure with hypoxia SNOMED: 833194944, 088957542 (2) Acute on chronic diastolic (congestive) heart failure ICD Codes: I50.33 - Acute on chronic diastolic (congestive) heart failure SNOMED: 71463343, 846478462 (3) Aflutter with RVR (4) NSTEMI (non-ST elevated myocardial infarction) ICD Codes: I21.4 - Non-ST elevation (NSTEMI) myocardial infarction SNOMED: 804448410 (5) chronic hypercapnea with alveolar hypoventilation (on BiPAP qHS and PRN at home) (6) Moderate to severe pulmonary hypertension ICD Codes: I27.20 - Pulmonary hypertension, unspecified SNOMED: 53660442 (7) Obesity ICD Codes: E66.9 - Obesity, unspecified SNOMED: 008654987 (8) Hypothyroidism ICD Codes: E03.9 - Hypothyroidism, unspecified SNOMED: 00283981 (9) H/O: CVA (cerebrovascular accident) ICD Codes: Z86.73 - Personal history of transient ischemic attack (TIA), and cerebral infarction without residual deficits SNOMED: 709767003 (10) SSS s/p PPM (11) DM2 (diabetes mellitus, type 2) ICD Codes: E11.9 - Type 2 diabetes mellitus without complications SNOMED: 88987256 Qualifiers: Qualified Codes: E11.8 - Type 2 diabetes mellitus with unspecified complications; Z79.4 - superintendent [employer] (current) use of insulin (12) Hyperkalemia ICD Codes: E87.5 - Hyperkalemia SNOMED: 47583806 Status: stable Assessment/Plan Pulm and cardiology consulted Trend trop/EKG--peaked at 0.3 D/w cardiology re Atrial flutter. Pacemaker to be interrogated per Dr. Love. Lovenox started for anticoagulation. Consider Eliquis on d/c. F/u TTE--EF 70-70%, incr RA pressures Cont BiPAP 15/15, RR 18, titrate FIO2 to O2 sat 91-93% Atrovent ATC and PRN Trend ABG Lasix 40mg IV for I/Os goal -1 to 1.5L Strict I/O's, daily weights Monitor BMP, replete lytes as needed Cont home meds but hold micardis given hyperkalemia, likely resume on d/c YANICK Pain control, bowel regimen Supportive care DVT Prophylaxis: SCD, Lovenox Code Status: Full Hospital Classification Declaration: Based on this initial evaluation, and depending on the patient's clinical course, I anticipate that this patient will require hospitalization for 1-2 days for hypoxia, CHF and close respiratory/ hemodynamic monitoring. Disposition: Once the patient is stable to leave the hospital, I anticipate the patient will likely be discharged to the following environment: home with HH + CG Discussed with patient/family, nursing staff, SW/CM, pulm, cardiology regarding clinical status, treatment course, and disposition planning. D/w caregiver and son extensively regarding plan of care. Time of note may not reflect time of encounter. Subjective Date patient seen: Apr 19, 2017 Time patient seen: 14:51 ROS Limited/Unobtainable: No Constitutional: Reports: no symptoms HEENT: Reports: no symptoms Cardiovascular: Reports: no symptoms Respiratory: Reports: shortness of breath Gastrointestinal/Abdominal: Reports: no symptoms Genitourinary: Reports: no symptoms Neurologic/Psychiatric: Reports: no symptoms Endocrine: Reports: no symptoms Hematologic/Lymphatic: Reports: no symptoms Allergies: Coded Allergies: No Known Allergies (Unverified , 04/17/17) Subjective No acute o/n events Diuresing well Using BiPAP throughout night Pt states she feels better. SOB improving. Hypoxia improved D/w caregiver and son. Pt to cont BiPAP during day as tolerated. Possible d/c tomorrow Objective Last 24 Hour Vital Signs Date Time Temp Pulse Resp B/P (MAP) Pulse Ox O2 Delivery O2 Flow Rate FiO2 04/19/17 12:00 98.2 71 19 117/56 97 Nasal Cannula 4.0 04/19/17 11:51 71 04/19/17 11:15 70 18 98 Nasal Cannula 4.0 36 04/19/17 11:08 71 18 97 Nasal Cannula 5.0 40 04/19/17 08:59 72 18 97 Full Face 30 04/19/17 08:56 78 91/45 04/19/17 08:00 97.9 78 18 91/45 96 Bi-pap 30 04/19/17 08:00 71 04/19/17 07:17 71 18 97 Bi-pap 30 04/19/17 07:10 72 18 97 Full Face 30 04/19/17 07:10 72 18 97 Bi-pap 30 04/19/17 05:12 73 21 97 Full Face 30 04/19/17 04:00 97.3 70 18 104/60 95 Bi-pap 30 04/19/17 03:53 71 04/19/17 03:17 71 18 98 Bi-pap 30 04/19/17 03:07 70 18 95 Bi-pap 30 04/19/17 03:07 70 18 95 Full Face 30 04/19/17 01:04 73 18 95 Full Face 30 04/19/17 00:00 98.2 73 24 102/54 97 Bi-pap 30 04/18/17 23:53 72 04/18/17 23:22 73 19 97 Bi-pap 30 04/18/17 23:14 73 19 97 Full Face 30 04/18/17 23:14 73 19 97 Bi-pap 30 04/18/17 21:11 71 116/70 04/18/17 20:55 71 20 94 Full Face 30 04/18/17 20:00 70 04/18/17 20:00 98.1 72 19 99/49 96 Bi-pap 30 04/18/17 19:20 71 23 96 Bi-pap 30 04/18/17 19:09 72 24 95 Full Face 30 04/18/17 19:09 73 24 95 Nasal Cannula 3.0 32 04/18/17 16:44 77 22 95 Full Face 30 04/18/17 16:00 98.0 71 21 116/70 93 Bi-pap 30 04/18/17 15:46 72 04/18/17 15:10 76 20 98 Nasal Cannula 2.0 28 04/18/17 14:59 70 18 97 Bi-pap 30 04/18/17 14:59 70 20 96 Full Face 30 Intake and Output 04/18/17 04/19/17 19:00 07:00 Intake Total 250 ml 240 ml Output Total 1400 ml 1200 ml Balance -1150 ml -960 ml Intake Oral 250 ml 240 ml Output Urine Total 1400 ml 1200 ml # Bowel Movements 2 Laboratory Tests 04/18/17 21:40: Troponin I 0.386H 04/19/17 03:50: Troponin I 0.269H, White Blood Count 9.7#, Red Blood Count 4.26, Hemoglobin 13.9 , Hematocrit 43.9, Mean Corpuscular Volume 103H, Mean Corpuscular Hemoglobin 32.6H, Mean Corpuscular Hemoglobin Concent 31.7L, Red Cell Distribution Width 15.9H, Platelet Count 136L, Mean Platelet Volume 8.8, Neutrophils (%) (Auto) 57.1, Lymphocytes (%) (Auto) 28.2, Monocytes (%) (Auto) 9.9, Eosinophils (%) ( Auto) 4.0H, Basophils (%) (Auto) 0.9, Sodium Level 143, Potassium Level 3.8, Chloride Level 97L, Carbon Dioxide Level 51*H, Blood Urea Nitrogen 38H, Creatinine 1.0, Estimat Glomerular Filtration Rate , Glucose Level 127#H, Calcium Level 9.0, Phosphorus Level 4.6, Magnesium Level 2.0, Total Bilirubin 0.3, Aspartate Amino Transf (AST/SGOT) 31, Alanine Aminotransferase (ALT/SGPT) 27, Alkaline Phosphatase 36L, Total Protein 5.9L, Albumin 2.6L, Globulin 3.3, Albumin/Globulin Ratio 0.8L, Thyroid Stimulating Hormone (TSH) 1.474, Free Thyroxine 1.09 04/19/17 08:08: Arterial Blood pH 7.426, Arterial Blood Partial Pressure CO2 74.4*H, Arterial Blood Partial Pressure O2 81.8, Arterial Blood HCO3 47.8H, Arterial Blood Oxygen Saturation 95.6, Arterial Blood Base Excess 19.0, Valeriano Test Positive 04/19/17 13:14: Troponin I 0.256H Height (Feet): 5 Height (Inches): 3.00 Weight (Pounds): 195 Objective General: alert, cooperative, no distress, appears stated age Head: normocephalic, without obvious abnormality, atraumatic Eyes: conjunctivae/corneas clear. PERRL, EOM's intact Throat: lips, mucosa, and tongue normal. MMM Neck: supple, symmetrical, trachea midline, and +JVD Lungs: decreased breath sounds b/l Heart: regular rate and rhythm, S1, S2 normal, no murmur, click, rub or gallop Abdomen: soft, non-tender, non-distended, bowel sounds normal Extremities: extremities normal, atraumatic, no cyanosis, 1-2+ pitting edema up to BLE knees Pulses: 2+ and symmetric Skin: skin color, texture, turgor normal; no rashes or lesions Neurologic: grossly normal, no focal deficits Sergio Felix M.D. Apr 19, 2017 15:00
[2017-04-19] MEDS ORDERED: acetaZOLAMIDE 500mg Inj IVP ONE (16:30)
--- NOTE | 2017-04-19 16:40 | Cardiology Report ---
APPROVED REPORT EKG Measurement Heart [id number] [place] 162P [id number] A. Flutter with 3:1 blck Nonspecific intraventricular block Possible Right ventricular hypertrophy Inferior infarct, age undetermined Anterolateral infarct, age undetermined Abnormal ECG
--- NOTE | 2017-04-19 20:01 | Wound Care Consultation ---
Wound Assessment Wound Assessment : Wound Number: 1 Wound Present on Admission: Yes New Wound: No Status Change of Wound: No Wound Location Body Site Modif: mid Wound Location Body Site: other - Sacrococcygeal, left and right buttocks Wound Type: other - Blanchable redness Jalen Test: Jalen Percent of Wound Foster/Red: 100 Wound Drainage Amount: None Wound Drainage Odor: None/Absent Tissue Surrounding Wound: Erythemic Wound General Appearance: Reddened Wound Comment #1 Sacrococcygeal area, left and right buttocks with blanchable redness. Will cont to monitor Recommendation -Low air loss SPR mattress -Keep clean and dry -Turn and reposition -Offload both heels -Heel protector on both heels -Optimize nutrition -Assess and f/u accordingly for any changes JUANCARLOS STUART RN Apr 19, 2017 20:01
[2017-04-19] MEDS: Atorvastatin 80mg tab ORAL SCH (20:56)
[2017-04-19] MEDS: Enoxaparin 60mg Inj SUBQ SCH (20:58)
[2017-04-20] VITALS: BP 104/48
[2017-04-20] MEDS: Ipratropium 0.02% Inh Soln 2.5ml UD HHN SCH ×6 (02:57→23:37)
[2017-04-20 04:00] VITALS: BP 90/47
[2017-04-20 04:29] LABS: EOSINOPHILS % (AUTO) 4.9 % (0.0-3.0); HEMATOCRIT 44.2 % (37.0-47.0); HEMOGLOBIN 13.6 G/DL (12.0-16.0); LYMPHOCYTES % (AUTO) 29.6 % (20.0-45.0); MEAN CORPUSCULAR VOLUME 104 FL (80-99); NEUTROPHILS % (AUTO) 54.5 % (45.0-75.0); PLATELET COUNT 133 K/UL (150-450); RED BLOOD COUNT 4.24 M/UL (4.20-5.40); RED CELL DISTRIBUTION WIDTH 15.7 % (11.6-14.8); WHITE BLOOD COUNT 9.6 K/UL (4.8-10.8)
[2017-04-20 05:05] LABS: ALANINE AMINOTRANSFERASE 22 U/L (12-78); ALBUMIN 2.5 G/DL (3.4-5.0); ALBUMIN/GLOBULIN RATIO 0.7 (1.0-2.7); ALKALINE PHOSPHATASE 36 U/L (46-116); ASPARTATE AMINO TRANSFERASE 25 U/L (15-37); BILIRUBIN,TOTAL 0.3 MG/DL (0.2-1.0); BLOOD UREA NITROGEN 48 mg/dL (7-18); CALCIUM 9.2 MG/DL (8.5-10.1); CHLORIDE 100 MMOL/L (98-107); CREATININE 1.6 MG/DL (0.55-1.30); POTASSIUM 4.7 MMOL/L (3.5-5.1); SODIUM 144 MMOL/L (136-145)
[2017-04-20 05:09] LABS: CARBON DIOXIDE 48 MMOL/L (21-32)
[2017-04-20] MEDS: sitaGLIPtin 50mg tab ORAL SCH (06:22)
[2017-04-20] MEDS: NovoLOG Insulin Flexpen SUBQ SCH ×4 (06:24→22:48)
[2017-04-20 08:00] VITALS: BP 112/56
--- NOTE | 2017-04-20 08:21 | Pulmonology Progress Note ---
Assessment/Plan Problems: (1) Acute on chronic diastolic (congestive) heart failure (2) NSTEMI (non-ST elevated myocardial infarction) (3) Chronic diastolic (congestive) heart failure (4) DM2 (diabetes mellitus, type 2) Assessment/Plan diuresed 6.5 prn BIPAP check electrolytes, bun highrer check pace maker hold lopressor if sbp less than 120 dc lasix IV f watch electroltyes sliding scale Subjective ROS Limited/Unobtainable: No Constitutional: Reports: no symptoms HEENT: Repors: no symptoms Respiratory: Reports: no symptoms Allergies: Coded Allergies: No Known Allergies (Unverified , 04/17/17) Objective Last 24 Hour Vital Signs Date Time Temp Pulse Resp B/P (MAP) Pulse Ox O2 Delivery O2 Flow Rate FiO2 04/20/17 07:54 69 18 98 Nasal Cannula 3.0 32 04/20/17 07:48 Bi-pap 40 04/20/17 07:48 70 18 95 Bi-pap 40 04/20/17 07:47 95 Bi-pap 40 04/20/17 05:00 71 18 98 Full Face 40 04/20/17 04:00 40 04/20/17 04:00 97.2 70 18 90/47 95 Bi-pap 40 04/20/17 04:00 71 04/20/17 03:05 71 18 98 Bi-pap 40 04/20/17 02:57 73 18 95 Full Face 40 04/20/17 02:57 73 18 95 Bi-pap 40 04/20/17 01:05 70 21 97 Full Face 40 04/20/17 00:00 40 04/20/17 00:00 71 04/20/17 00:00 97.7 71 18 104/48 98 Bi-pap 40 04/19/17 23:54 71 18 97 Bi-pap 40 04/19/17 23:43 71 19 94 Full Face 40 04/19/17 23:43 71 19 93 Bi-pap 40 04/19/17 22:00 30 04/19/17 21:57 68 20 96 Full Face 30 04/19/17 20:00 97.7 69 24 117/54 99 Nasal Cannula 2.0 04/19/17 20:00 69 04/19/17 19:41 68 18 99 Nasal Cannula 3.0 32 04/19/17 19:33 69 18 96 Nasal Cannula 3.0 32 04/19/17 19:32 Nasal Cannula 3.0 32 04/19/17 19:32 96 Nasal Cannula 3.0 32 04/19/17 18:07 71 18 97/45 95 Nasal Cannula 2.0 04/19/17 16:00 97.6 71 19 88/41 96 Nasal Cannula 3.0 04/19/17 16:00 71 04/19/17 16:00 71 88/41 04/19/17 15:33 70 18 97 Nasal Cannula 3.0 32 04/19/17 15:20 72 18 97 Nasal Cannula 3.0 32 04/19/17 12:00 98.2 71 19 117/56 97 Nasal Cannula 4.0 04/19/17 11:51 71 04/19/17 11:15 70 18 98 Nasal Cannula 4.0 36 04/19/17 11:08 71 18 97 Nasal Cannula 5.0 40 04/19/17 11:05 Nasal Cannula 5.0 40 04/19/17 11:05 96 Nasal Cannula 5.0 40 04/19/17 08:59 72 18 97 Full Face 30 04/19/17 08:56 78 91/45 Intake and Output 04/19/17 04/20/17 19:00 07:00 Intake Total 220 ml 200 ml Output Total 1400 ml 500 ml Balance -1180 ml -300 ml Intake Oral 220 ml 200 ml Output Urine Total 1400 ml 500 ml Objective HEENT: normocephalic, atraumatic, mucous membranes moist Respiratory/Chest: chest wall non-tender, lungs clear, no respiratory distress Cardiovascular: normal peripheral pulses Abdomen: soft, non tender, non distended Genitourinary: normal external genitalia Extremities: no cyanosis, no clubbing, minimal edema Skin: no ulcers Laboratory Tests 04/19/17 13:14: Troponin I 0.256H 04/20/17 03:20: White Blood Count 9.6, Red Blood Count 4.24, Hemoglobin 13.6, Hematocrit 44.2, Mean Corpuscular Volume 104H, Mean Corpuscular Hemoglobin 32.0H, Mean Corpuscular Hemoglobin Concent 30.7L, Red Cell Distribution Width 15.7H, Platelet Count 133L, Mean Platelet Volume 7.8, Neutrophils (%) (Auto) 54.5, Lymphocytes (%) (Auto) 29.6, Monocytes (%) (Auto) 10.0, Eosinophils (%) (Auto) 4.9H, Basophils (%) (Auto) 1.0, Sodium Level 144, Potassium Level 4.7, Chloride Level 100, Carbon Dioxide Level 48*H, Blood Urea Nitrogen 48H, Creatinine 1.6#H , Estimat Glomerular Filtration Rate , Glucose Level 223H, Calcium Level 9.2, Magnesium Level 2.2, Total Bilirubin 0.3, Aspartate Amino Transf (AST/SGOT) 25, Alanine Aminotransferase (ALT/SGPT) 22, Alkaline Phosphatase 36L, Pro-B-Type Natriuretic Peptide 2350H, Total Protein 6.2L, Albumin 2.5L, Globulin 3.7, Albumin/Globulin Ratio 0.7L 04/20/17 08:08: Arterial Blood pH 7.349L, Arterial Blood Partial Pressure CO2 88.6*H, Arterial Blood Partial Pressure O2 78.7, Arterial Blood HCO3 47.7H, Arterial Blood Oxygen Saturation 94.5, Arterial Blood Base Excess 17.1, Valeriano Test Positive Current Medications Medications (Trade) Dose Ordered Sig/[place] Route PRN Reason Start Time Stop Time Status Last Admin Dose Admin Acetaminophen (Tylenol) 650 mg Q4H PRN ORAL Fever (temp>100.5F) 04/17/17 16:00 05/17/17 15:59 04/19/17 18:40 Aspirin (Ecotrin) 81 mg DAILY ORAL 04/18/17 09:00 05/18/17 08:59 04/19/17 09:09 Atorvastatin Calcium (Lipitor) 80 mg BEDTIME ORAL 04/17/17 21:00 05/17/17 20:59 04/19/17 20:56 Dextrose (Dextrose 50%) STAT PRN IV Hypoglycemia 04/17/17 19:45 05/17/17 19:44 Enoxaparin Sodium (Lovenox) 60 mg EVERY 12 HOURS SUBQ 04/19/17 21:00 05/19/17 20:59 04/19/17 20:58 Folic Acid (Folate) 1 mg DAILY ORAL 04/18/17 09:00 05/18/17 08:59 04/19/17 09:09 Furosemide (Lasix) 40 mg EVERY 8 HOURS IV 04/17/17 16:00 05/17/17 15:59 04/20/17 06:22 Gabapentin (Neurontin) 600 mg THREE TIMES A DAY ORAL 04/18/17 09:00 05/18/17 08:59 04/19/17 18:31 Insulin Aspart (NovoLOG) BEFORE MEALS AND HS SUBQ 04/17/17 21:00 05/17/17 20:59 04/20/17 06:24 Ipratropium Foster (Atrovent) 500 mcg Q4H PRN HHN SOB, wheezing 04/17/17 17:00 04/22/17 16:59 Ipratropium Foster (Atrovent) 500 mcg Q4HRT HHN 04/17/17 18:00 04/22/17 17:59 04/20/17 07:49 Levothyroxine Sodium (Synthroid) 50 mcg DAILY@0630 ORAL 04/18/17 06:30 05/18/17 06:29 04/20/17 06:22 Lorazepam (Ativan) 0.5 mg Q8HR PRN ORAL For Anxiety 04/18/17 13:00 04/25/17 12:59 04/18/17 21:11 Metoprolol Succinate (Toprol XL) 50 mg DAILY ORAL 04/19/17 16:00 05/18/17 15:59 Ondansetron HCl (Zofran) 4 mg Q6H PRN IVP Nausea & Vomiting 04/17/17 16:00 05/17/17 15:59 Polyethylene Glycol (Miralax) 17 gm DAILYPRN PRN ORAL Constipation 04/17/17 16:00 05/17/17 15:59 Sitagliptin Phosphate (Januvia) 50 mg ACBREAKFAST ORAL 04/18/17 06:30 05/18/17 06:29 04/20/17 06:22 Temazepam (Restoril) 15 mg HSPRN PRN ORAL Insomnia 04/17/17 16:00 04/24/17 15:59 04/19/17 01:08 Tiotropium Foster (Spiriva Inhaler) 1 puff DAILY INH 04/18/17 09:00 05/18/17 08:59 04/19/17 10:12 JONI MADERA Apr 20, 2017 08:21
[2017-04-20] MEDS: Metoprolol Succinate XL 50mg tab ORAL SCH (09:00)
[2017-04-20] MEDS: Aspirin EC 81mg tab ORAL SCH (09:00)
[2017-04-20] MEDS: Enoxaparin 60mg Inj SUBQ SCH ×2 (09:02→22:47)
--- NOTE | 2017-04-20 10:44 | Diagnostic Imaging Report ---
Indication: Dyspnea Technique: XRAY Chest 1v Comparison: 04/19/2017 Findings: Stable cardiomegaly. Interval worsening of aeration with increased interstitial opacification/edema and increased opacification at the left base. These findings may possibly be exaggerated due to lower lung volumes. Pacemaker is unchanged. Calcified granuloma and scarring in the left apex again noted. Impression: Apparent interval worsening of aeration with increased interstitial opacification/edema and worsened aeration of the left lung base. These findings may be exaggerated due to lower lung volumes on today's exam. Follow-up exam recommended.
[2017-04-20 12:00] VITALS: BP 93/44
--- NOTE | 2017-04-20 14:16 | General Progress Note ---
Assessment/Plan Problem List: (1) Hypothyroidism ICD Codes: E03.9 - Hypothyroidism, unspecified SNOMED: 21417033 (2) Obesity ICD Codes: E66.9 - Obesity, unspecified SNOMED: 030304158 (3) Moderate to severe pulmonary hypertension ICD Codes: I27.20 - Pulmonary hypertension, unspecified SNOMED: 32718199 (4) SSS s/p PPM (5) Aflutter with RVR (6) Acute on chronic diastolic (congestive) heart failure ICD Codes: I50.33 - Acute on chronic diastolic (congestive) heart failure SNOMED: 13028926, 416902779 (7) Acute and chronic respiratory failure with hypoxia ICD Codes: J96.21 - Acute and chronic respiratory failure with hypoxia SNOMED: 924351200, 597993417 (8) NSTEMI (non-ST elevated myocardial infarction) ICD Codes: I21.4 - Non-ST elevation (NSTEMI) myocardial infarction SNOMED: 966833248 (9) chronic hypercapnea with alveolar hypoventilation (on BiPAP qHS and PRN at home) (10) H/O: CVA (cerebrovascular accident) ICD Codes: Z86.73 - Personal history of transient ischemic attack (TIA), and cerebral infarction without residual deficits SNOMED: 601756179 (11) lives at home with 24/ caregiver (12) DM2 (diabetes mellitus, type 2) ICD Codes: E11.9 - Type 2 diabetes mellitus without complications SNOMED: 23818313 Qualifiers: Qualified Codes: E11.8 - Type 2 diabetes mellitus with unspecified complications; Z79.4 - terminal press operator (current) use of insulin (13) Acute kidney injury ICD Codes: N17.9 - Acute kidney failure, unspecified SNOMED: 77365011 Status: not improved Assessment/Plan Pulm and cardiology consulted. appreciate recs Trend trop/EKG--peaked at 0.3 D/w cardiology re Atrial flutter. Pacemaker to be interrogated per Dr. Love. Lovenox started for anticoagulation. Consider Eliquis on d/c. F/u TTE--EF 70-70%, incr RA pressures Cont BiPAP 15/15, RR 18, titrate FIO2 to O2 sat 91-93% --> patient will be on continuous bipap for now given CO2 retention Atrovent ATC and PRN Trend ABG Lasix 40mg IV for I/Os goal -1 to 1.5L --> dc'ed per pulm Trend Cr. 1.0 --> 1.6 Strict I/O's, daily weights Monitor BMP, replete lytes as needed Cont home meds but hold micardis given hyperkalemia, likely resume on d/c YANICK Pain control, bowel regimen Supportive care DVT Prophylaxis: SCD, Lovenox Code Status: Full Hospital Classification Declaration: Based on this initial evaluation, and depending on the patient's clinical course, I anticipate that this patient will require hospitalization for 1-2 days for hypoxia, CHF and close respiratory/ hemodynamic monitoring. Disposition: Once the patient is stable to leave the hospital, I anticipate the patient will likely be discharged to the following environment: home with HH + CG Discussed with patient/family, nursing staff, SW/CM, pulm, cardiology regarding clinical status, treatment course, and disposition planning. D/w caregiver and son extensively regarding plan of care. Time of note may not reflect time of encounter. Subjective Date patient seen: Apr 20, 2017 Allergies: Coded Allergies: No Known Allergies (Unverified , 04/17/17) Subjective patient continuing to retain CO2, placed on continuous bipap lasix dc'ed per pulm Cr uptrending patient seen, resting comfortably on bipap. caregiver at bedside Objective Last 24 Hour Vital Signs Date Time Temp Pulse Resp B/P (MAP) Pulse Ox O2 Delivery O2 Flow Rate FiO2 04/20/17 12:52 69 18 95 Full Face 40 04/20/17 12:00 40 04/20/17 11:06 71 18 99 Nasal Cannula 3.0 32 04/20/17 11:03 72 18 94 Nasal Cannula 3.0 32 04/20/17 09:00 71 112/56 04/20/17 08:00 40 04/20/17 08:00 97.7 71 18 112/56 94 Bi-pap 40 04/20/17 08:00 69 04/20/17 07:54 69 18 98 Nasal Cannula 3.0 32 04/20/17 07:48 Bi-pap 40 04/20/17 07:48 70 18 95 Bi-pap 40 04/20/17 07:47 95 Bi-pap 40 04/20/17 05:00 71 18 98 Full Face 40 04/20/17 04:00 40 2/10/18 04:00 97.2 70 18 90/47 95 Bi-pap 40 04/20/17 04:00 71 04/20/17 03:05 71 18 98 Bi-pap 40 04/20/17 02:57 73 18 95 Full Face 40 04/20/17 02:57 73 18 95 Bi-pap 40 04/20/17 01:05 70 21 97 Full Face 40 04/20/17 00:00 40 04/20/17 00:00 71 04/20/17 00:00 97.7 71 18 104/48 98 Bi-pap 40 04/19/17 23:54 71 18 97 Bi-pap 40 04/19/17 23:43 71 19 94 Full Face 40 04/19/17 23:43 71 19 93 Bi-pap 40 04/19/17 22:00 30 04/19/17 21:57 68 20 96 Full Face 30 04/19/17 20:00 97.7 69 24 117/54 99 Nasal Cannula 2.0 04/19/17 20:00 69 04/19/17 19:41 68 18 99 Nasal Cannula 3.0 32 04/19/17 19:33 69 18 96 Nasal Cannula 3.0 32 04/19/17 19:32 Nasal Cannula 3.0 32 04/19/17 19:32 96 Nasal Cannula 3.0 32 04/19/17 18:07 71 18 97/45 95 Nasal Cannula 2.0 04/19/17 16:00 97.6 71 19 88/41 96 Nasal Cannula 3.0 04/19/17 16:00 71 04/19/17 16:00 71 88/41 04/19/17 15:33 70 18 97 Nasal Cannula 3.0 32 04/19/17 15:20 72 18 97 Nasal Cannula 3.0 32 Intake and Output 04/19/17 04/20/17 19:00 07:00 Intake Total 220 ml 200 ml Output Total 1400 ml 500 ml Balance -1180 ml -300 ml Intake Oral 220 ml 200 ml Output Urine Total 1400 ml 500 ml Laboratory Tests 04/20/17 03:20: White Blood Count 9.6, Red Blood Count 4.24, Hemoglobin 13.6, Hematocrit 44.2, Mean Corpuscular Volume 104H, Mean Corpuscular Hemoglobin 32.0H, Mean Corpuscular Hemoglobin Concent 30.7L, Red Cell Distribution Width 15.7H, Platelet Count 133L, Mean Platelet Volume 7.8, Neutrophils (%) (Auto) 54.5, Lymphocytes (%) (Auto) 29.6, Monocytes (%) (Auto) 10.0, Eosinophils (%) (Auto) 4.9H, Basophils (%) (Auto) 1.0, Sodium Level 144, Potassium Level 4.7, Chloride Level 100, Carbon Dioxide Level 48*H, Blood Urea Nitrogen 48H, Creatinine 1.6#H , Estimat Glomerular Filtration Rate , Glucose Level 223H, Calcium Level 9.2, Magnesium Level 2.2, Total Bilirubin 0.3, Aspartate Amino Transf (AST/SGOT) 25, Alanine Aminotransferase (ALT/SGPT) 22, Alkaline Phosphatase 36L, Pro-B-Type Natriuretic Peptide 2350H, Total Protein 6.2L, Albumin 2.5L, Globulin 3.7, Albumin/Globulin Ratio 0.7L 04/20/17 08:08: Arterial Blood pH 7.349L, Arterial Blood Partial Pressure CO2 88.6*H, Arterial Blood Partial Pressure O2 78.7, Arterial Blood HCO3 47.7H, Arterial Blood Oxygen Saturation 94.5, Arterial Blood Base Excess 17.1, Valeriano Test Positive Height (Feet): 5 Height (Inches): 3.00 Weight (Pounds): 198 General Appearance: mild distress EENT: PERRL/EOMI Neck: non-tender Cardiovascular: normal peripheral pulses, regularly irregular Respiratory/Chest: chest wall non-tender, lungs clear, other - on bipap Abdomen: normal bowel sounds, non tender, soft Edema: mild edema 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 Apr 20, 2017 14:16
[2017-04-20 16:00] VITALS: BP_SYST 109; BP_SYST 93; BP_DIAS 48; BP_DIAS 57
--- NOTE | 2017-04-20 17:17 | Cardiac Electrophysiology PN ---
Assessment/Plan Assessment/Plan 1. Troponin leak. Due to atrial flutter with rapid ventricular response and azotemia. Continue aspirin and metoprolol 50 mg b.i.d. EF 70% 2. Congestive heart failure with diastolic dysfunction as well as atrial flutter with rapid ventricular response. On Lasix 40 mg IV every eight hours. 3. Hypertension, on Toprol and Lasix. 4. Status post BS pacemaker implantation. Interrogated and showed Nl Fx 5. Paroxysmal Atrial flutter, Likely benefit from MARTY and if no clot, atrial flutter ablation for a curative approach On Lovenox. Change to Eliquis on discharge 6. Chronic obstructive pulmonary disease, on Atrovent and Proventil and BIPAP 7. Diabetes, on Januvia. 8. Hypothyroidism, on Synthroid. JOHN RN and home care and home health aides teacher JOHN Michael at [facility] patients EP Subjective Subjective On Continuos BIPAP now. Remained in atrial flutter.Echo EF 75%. claim processor at bedside. Objective Last 24 Hour Vital Signs Date Time Temp Pulse Resp B/P (MAP) Pulse Ox O2 Delivery O2 Flow Rate FiO2 04/20/17 15:01 67 18 99 Bi-pap 3.0 32 04/20/17 14:51 72 21 97 Full Face 40 04/20/17 14:49 71 18 97 Bi-pap 40 04/20/17 12:52 69 18 95 Full Face 40 04/20/17 12:00 72 04/20/17 12:00 40 04/20/17 11:06 71 18 99 Nasal Cannula 3.0 32 04/20/17 11:03 72 18 94 Nasal Cannula 3.0 32 04/20/17 09:00 71 112/56 04/20/17 08:00 40 04/20/17 08:00 97.7 71 18 112/56 94 Bi-pap 40 04/20/17 08:00 69 04/20/17 07:54 69 18 98 Nasal Cannula 3.0 32 04/20/17 07:48 Bi-pap 40 04/20/17 07:48 70 18 95 Bi-pap 40 04/20/17 07:47 95 Bi-pap 40 04/20/17 05:00 71 18 98 Full Face 40 04/20/17 04:00 40 04/20/17 04:00 97.2 70 18 90/47 95 Bi-pap 40 04/20/17 04:00 71 04/20/17 03:05 71 18 98 Bi-pap 40 04/20/17 02:57 73 18 95 Full Face 40 04/20/17 02:57 73 18 95 Bi-pap 40 04/20/17 01:05 70 21 97 Full Face 40 04/20/17 00:00 40 04/20/17 00:00 71 04/20/17 00:00 97.7 71 18 104/48 98 Bi-pap 40 04/19/17 23:54 71 18 97 Bi-pap 40 04/19/17 23:43 71 19 94 Full Face 40 04/19/17 23:43 71 19 93 Bi-pap 40 04/19/17 22:00 30 04/19/17 21:57 68 20 96 Full Face 30 04/19/17 20:00 97.7 69 24 117/54 99 Nasal Cannula 2.0 04/19/17 20:00 69 04/19/17 19:41 68 18 99 Nasal Cannula 3.0 32 04/19/17 19:33 69 18 96 Nasal Cannula 3.0 32 04/19/17 19:32 Nasal Cannula 3.0 32 04/19/17 19:32 96 Nasal Cannula 3.0 32 04/19/17 18:07 71 18 97/45 95 Nasal Cannula 2.0 Intake and Output 04/19/17 04/20/17 19:00 07:00 Intake Total 220 ml 200 ml Output Total 1400 ml 500 ml Balance -1180 ml -300 ml Intake Oral 220 ml 200 ml Output Urine Total 1400 ml 500 ml Laboratory Tests Test 04/20/17 03:20 04/20/17 08:08 White Blood Count 9.6 K/UL (4.8-10.8) Red Blood Count 4.24 M/UL (4.20-5.40) Hemoglobin 13.6 G/DL (12.0-16.0) Hematocrit 44.2 % (37.0-47.0) Mean Corpuscular Volume 104 FL (80-99) H Mean Corpuscular Hemoglobin 32.0 PG (27.0-31.0) H Mean Corpuscular Hemoglobin Concent 30.7 G/DL (32.0-36.0) L Red Cell Distribution Width 15.7 % (11.6-14.8) H Platelet Count 133 K/UL (150-450) L Mean Platelet Volume 7.8 FL (6.5-10.1) Neutrophils (%) (Auto) 54.5 % (45.0-75.0) Lymphocytes (%) (Auto) 29.6 % (20.0-45.0) Monocytes (%) (Auto) 10.0 % (1.0-10.0) Eosinophils (%) (Auto) 4.9 % (0.0-3.0) H Basophils (%) (Auto) 1.0 % (0.0-2.0) Sodium Level 144 MMOL/L (136-145) Potassium Level 4.7 MMOL/L (3.5-5.1) Chloride Level 100 MMOL/L (98-107) Carbon Dioxide Level 48 MMOL/L (21-32) *H Blood Urea Nitrogen 48 mg/dL (7-18) H Creatinine 1.6 MG/DL (0.55-1.30) #H Estimat Glomerular Filtration Rate mL/min (>60) Glucose Level 223 MG/DL (74-106) H Calcium Level 9.2 MG/DL (8.5-10.1) Magnesium Level 2.2 MG/DL (1.8-2.4) Total Bilirubin 0.3 MG/DL (0.2-1.0) Aspartate Amino Transf (AST/SGOT) 25 U/L (15-37) Alanine Aminotransferase (ALT/SGPT) 22 U/L (12-78) Alkaline Phosphatase 36 U/L (46-116) L Pro-B-Type Natriuretic Peptide 2350 pg/mL (0-125) H Total Protein 6.2 G/DL (6.4-8.2) L Albumin 2.5 G/DL (3.4-5.0) L Globulin 3.7 g/dL Albumin/Globulin Ratio 0.7 (1.0-2.7) L Arterial Blood pH 7.349 (7.350-7.450) Arterial Blood Partial Pressure CO2 88.6 mmHg (35.0-45.0) *H Arterial Blood Partial Pressure O2 78.7 mmHg (75.0-100.0) Arterial Blood HCO3 47.7 mmol/L (22.0-26.0) H Arterial Blood Oxygen Saturation 94.5 % (92.0-98.0) Arterial Blood Base Excess 17.1 Valeriano Test Positive Objective HEAD AND NECK: No JVD.BIPAP on LUNGS: Decreased breath sounds. CARDIOVASCULAR: Irregular S1 and S2 with no gallop or murmur. Pacemaker is in left subclavian. ABDOMEN: Soft. EXTREMITIES: Bilateral 2+ pitting edema. RENETTA PHAM Apr 20, 2017 17:17
[2017-04-20 20:00] VITALS: BP 113/51
[2017-04-20] MEDS: Atorvastatin 80mg tab ORAL SCH (22:46)
[2017-04-21] VITALS: BP 93/51
[2017-04-21] MEDS: Ipratropium 0.02% Inh Soln 2.5ml UD HHN SCH ×6 (03:44→22:31)
[2017-04-21 04:00] VITALS: BP 93/53
[2017-04-21 05:28] LABS: BASOPHILS % (AUTO) 0.5 % (0.0-2.0); EOSINOPHILS % (AUTO) 3.8 % (0.0-3.0); HEMATOCRIT 41.6 % (37.0-47.0); LYMPHOCYTES % (AUTO) 22.3 % (20.0-45.0); MEAN CORPUSCULAR VOLUME 105 FL (80-99); MONOCYTES % (AUTO) 9.5 % (1.0-10.0); NEUTROPHILS % (AUTO) 63.9 % (45.0-75.0); PLATELET COUNT 104 K/UL (150-450); RED BLOOD COUNT 3.98 M/UL (4.20-5.40); RED CELL DISTRIBUTION WIDTH 15.2 % (11.6-14.8); WHITE BLOOD COUNT 7.6 K/UL (4.8-10.8)
[2017-04-21 05:54] LABS: ALBUMIN 2.4 G/DL (3.4-5.0); ALBUMIN/GLOBULIN RATIO 0.7 (1.0-2.7); ALKALINE PHOSPHATASE 37 U/L (46-116)
[2017-04-21] MEDS: sitaGLIPtin 50mg tab ORAL SCH (06:14)
[2017-04-21] MEDS: NovoLOG Insulin Flexpen SUBQ SCH ×4 (06:15→20:49)
[2017-04-21 06:22] LABS: ALANINE AMINOTRANSFERASE 18 U/L (12-78); ASPARTATE AMINO TRANSFERASE 19 U/L (15-37); BILIRUBIN,TOTAL 0.3 MG/DL (0.2-1.0); BLOOD UREA NITROGEN 49 mg/dL (7-18); CALCIUM 8.4 MG/DL (8.5-10.1); CHLORIDE 96 MMOL/L (98-107); CREATININE 1.3 MG/DL (0.55-1.30); POTASSIUM 3.4 MMOL/L (3.5-5.1); SODIUM 140 MMOL/L (136-145)
[2017-04-21 06:45] LABS: CARBON DIOXIDE > 45 MMOL/L (21-32)
[2017-04-21 08:00] VITALS: BP 100/40
--- NOTE | 2017-04-21 08:04 | Pulmonology Progress Note ---
Assessment/Plan Problems: (1) Acute on chronic diastolic (congestive) heart failure (2) NSTEMI (non-ST elevated myocardial infarction) (3) Chronic diastolic (congestive) heart failure (4) DM2 (diabetes mellitus, type 2) Assessment/Plan diuresed 7.5 prn BIPAP check electrolytes, creatinine lower, check pace maker hold lopressor if sbp less than 120 resume lasix IV at lower dose watch electroltyes sliding scale dc planning when ok [facility] order checker packer processer Subjective ROS Limited/Unobtainable: No Constitutional: Reports: no symptoms HEENT: Repors: no symptoms Cardiovascular: Reports: no symptoms Gastrointestinal/Abdominal: Reports: no symptoms Allergies: Coded Allergies: No Known Allergies (Unverified , 04/17/17) Objective Last 24 Hour Vital Signs Date Time Temp Pulse Resp B/P (MAP) Pulse Ox O2 Delivery O2 Flow Rate FiO2 04/21/17 07:47 75 18 100 Nasal Cannula 4.0 36 04/21/17 07:46 Nasal Cannula 4.0 36 04/21/17 07:22 72 18 96 Nasal Cannula 4.0 36 04/21/17 07:18 96 Nasal Cannula 4.0 36 04/21/17 05:30 75 20 95 Full Face 40 04/21/17 04:02 75 18 99 Bi-pap 40 04/21/17 04:00 96.5 88 18 93/53 95 Bi-pap 40 04/21/17 04:00 71 04/21/17 04:00 40 04/21/17 03:55 75 18 99 Bi-pap 40 04/21/17 03:45 70 18 97 Bi-pap 40 04/21/17 03:45 70 18 95 Full Face 40 04/21/17 01:36 69 14 97 Full Face 40 04/21/17 00:00 97.0 95 18 93/51 95 Bi-pap 40 04/21/17 00:00 71 04/20/17 23:48 72 18 99 Bi-pap 40 04/20/17 23:38 71 18 98 Bi-pap 40 04/20/17 23:38 72 18 98 Full Face 40 04/20/17 21:15 91 18 97 Full Face 40 04/20/17 20:00 72 04/20/17 20:00 97.3 70 20 113/51 99 Bi-pap 40 04/20/17 20:00 40 04/20/17 19:40 78 18 99 Nasal Cannula 3.0 32 04/20/17 19:30 74 18 92 Nasal Cannula 2.0 04/20/17 19:29 Nasal Cannula 2.0 28 04/20/17 19:29 92 Nasal Cannula 3.0 32 04/20/17 19:15 72 24 98 Full Face 40 04/20/17 17:30 73 19 98 Full Face 40 04/20/17 16:00 40 04/20/17 16:00 97.3 70 20 109/57 98 Bi-pap 40 04/20/17 16:00 71 04/20/17 15:01 67 18 99 Bi-pap 3.0 32 04/20/17 14:51 72 21 97 Full Face 40 04/20/17 14:49 71 18 97 Bi-pap 40 04/20/17 12:52 69 18 95 Full Face 40 04/20/17 12:00 72 04/20/17 12:00 97.2 72 18 93/44 95 Bi-pap 40 04/20/17 12:00 40 04/20/17 11:06 71 18 99 Nasal Cannula 3.0 32 04/20/17 11:03 72 18 94 Nasal Cannula 3.0 32 04/20/17 09:00 71 112/56 Intake and Output 04/20/17 04/21/17 19:00 07:00 Intake Total 500 ml 200 ml Output Total 1500 ml 600 ml Balance -1000 ml -400 ml Intake Oral 500 ml 200 ml Output Urine Total 1500 ml 600 ml # Bowel Movements 1 2 Objective HEENT: normocephalic, atraumatic, mucous membranes moist Respiratory/Chest: chest wall non-tender, lungs clear, no respiratory distress Cardiovascular: normal peripheral pulses Abdomen: soft, non tender, non distended Genitourinary: normal external genitalia Extremities: no cyanosis, no clubbing, minimal edema Skin: no ulcers Laboratory Tests 04/20/17 08:08: Arterial Blood pH 7.349L, Arterial Blood Partial Pressure CO2 88.6*H, Arterial Blood Partial Pressure O2 78.7, Arterial Blood HCO3 47.7H, Arterial Blood Oxygen Saturation 94.5, Arterial Blood Base Excess 17.1, Valeriano Test Positive 04/21/17 03:45: White Blood Count 7.6, Red Blood Count 3.98L, Hemoglobin 13.0, Hematocrit 41.6, Mean Corpuscular Volume 105H, Mean Corpuscular Hemoglobin 32.7H, Mean Corpuscular Hemoglobin Concent 31.2L, Red Cell Distribution Width 15.2H, Platelet Count 104L, Mean Platelet Volume 9.2, Neutrophils (%) (Auto) 63.9, Lymphocytes (%) (Auto) 22.3, Monocytes (%) (Auto) 9.5, Eosinophils (%) (Auto) 3.8H, Basophils (%) (Auto) 0.5, Sodium Level 140, Potassium Level 3.4L, Chloride Level 96L, Carbon Dioxide Level > 45*H, Blood Urea Nitrogen 49H, Creatinine 1.3, Estimat Glomerular Filtration Rate , Glucose Level 302H, Calcium Level 8.4L, Total Bilirubin 0.3, Aspartate Amino Transf (AST/SGOT) 19, Alanine Aminotransferase (ALT/SGPT) 18, Alkaline Phosphatase 37L, Pro-B-Type Natriuretic Peptide 1382H, Total Protein 6.0L, Albumin 2.4L, Globulin 3.6, Albumin/Globulin Ratio 0.7L Current Medications Medications (Trade) Dose Ordered Sig/[place] Route PRN Reason Start Time Stop Time Status Last Admin Dose Admin Acetaminophen (Tylenol) 650 mg Q4H PRN ORAL Fever (temp>100.5F) 04/17/17 16:00 05/17/17 15:59 04/20/17 19:23 Aspirin (Ecotrin) 81 mg DAILY ORAL 04/18/17 09:00 05/18/17 08:59 04/20/17 09:00 Atorvastatin Calcium (Lipitor) 80 mg BEDTIME ORAL 04/17/17 21:00 05/17/17 20:59 04/20/17 22:46 Dextrose (Dextrose 50%) STAT PRN IV Hypoglycemia 04/17/17 19:45 05/17/17 19:44 Enoxaparin Sodium (Lovenox) 60 mg EVERY 12 HOURS SUBQ 04/19/17 21:00 05/19/17 20:59 04/20/17 22:47 Folic Acid (Folate) 1 mg DAILY ORAL 04/18/17 09:00 05/18/17 08:59 04/20/17 09:00 Gabapentin (Neurontin) 600 mg THREE TIMES A DAY ORAL 04/18/17 09:00 05/18/17 08:59 04/20/17 18:08 Insulin Aspart (NovoLOG) BEFORE MEALS AND HS SUBQ 04/17/17 21:00 05/17/17 20:59 04/21/17 06:15 Ipratropium Miles (Atrovent) 500 mcg Q4H PRN HHN SOB, wheezing 04/17/17 17:00 04/22/17 16:59 Ipratropium Miles (Atrovent) 500 mcg Q4HRT HHN 04/17/17 18:00 04/22/17 17:59 04/21/17 07:18 Levothyroxine Sodium (Synthroid) 50 mcg DAILY@0630 ORAL 04/18/17 06:30 05/18/17 06:29 04/21/17 06:14 Lorazepam (Ativan) 0.5 mg Q8HR PRN ORAL For Anxiety 04/18/17 13:00 04/25/17 12:59 04/18/17 21:11 Metoprolol Succinate (Toprol XL) 50 mg DAILY ORAL 04/19/17 16:00 05/18/17 15:59 Ondansetron HCl (Zofran) 4 mg Q6H PRN IVP Nausea & Vomiting 04/17/17 16:00 05/17/17 15:59 Polyethylene Glycol (Miralax) 17 gm DAILYPRN PRN ORAL Constipation 04/17/17 16:00 05/17/17 15:59 Sitagliptin Phosphate (Januvia) 50 mg ACBREAKFAST ORAL 04/18/17 06:30 05/18/17 06:29 04/21/17 06:14 Temazepam (Restoril) 15 mg HSPRN PRN ORAL Insomnia 04/17/17 16:00 04/24/17 15:59 04/19/17 01:08 Tiotropium Miles (Spiriva Inhaler) 1 puff DAILY INH 04/18/17 09:00 05/18/17 08:59 04/20/17 08:39 JONI MADERA Apr 21, 2017 08:04
[2017-04-21] MEDS: Aspirin EC 81mg tab ORAL SCH (08:48)
[2017-04-21] MEDS: Metoprolol Succinate XL 50mg tab ORAL SCH (08:58)
[2017-04-21] MEDS: Enoxaparin 60mg Inj SUBQ SCH ×2 (08:58→20:48)
[2017-04-21 12:00] VITALS: BP 100/40
--- NOTE | 2017-04-21 13:51 | General Progress Note ---
Assessment/Plan Problem List: (1) Hypothyroidism ICD Codes: E03.9 - Hypothyroidism, unspecified SNOMED: 40974083 (2) Obesity ICD Codes: E66.9 - Obesity, unspecified SNOMED: 348885103 (3) Moderate to severe pulmonary hypertension ICD Codes: I27.20 - Pulmonary hypertension, unspecified SNOMED: 52415211 (4) SSS s/p PPM (5) Aflutter with RVR (6) Acute on chronic diastolic (congestive) heart failure ICD Codes: I50.33 - Acute on chronic diastolic (congestive) heart failure SNOMED: 68944637, 797992097 (7) Acute and chronic respiratory failure with hypoxia ICD Codes: J96.21 - Acute and chronic respiratory failure with hypoxia SNOMED: 274471284, 051153252 (8) NSTEMI (non-ST elevated myocardial infarction) ICD Codes: I21.4 - Non-ST elevation (NSTEMI) myocardial infarction SNOMED: 167098219 (9) chronic hypercapnea with alveolar hypoventilation (on BiPAP qHS and PRN at home) (10) H/O: CVA (cerebrovascular accident) ICD Codes: Z86.73 - Personal history of transient ischemic attack (TIA), and cerebral infarction without residual deficits SNOMED: 223460329 (11) lives at home with 24/7 caregiver (12) DM2 (diabetes mellitus, type 2) ICD Codes: E11.9 - Type 2 diabetes mellitus without complications SNOMED: 67842369 Qualifiers: Qualified Codes: E11.8 - Type 2 diabetes mellitus with unspecified complications; Z79.4 - buttermaker helper (current) use of insulin (13) Acute kidney injury ICD Codes: N17.9 - Acute kidney failure, unspecified SNOMED: 82350418 Status: progressing Assessment/Plan Pulm and cardiology consulted. Cleared from pulm standpoint. Continue bipap prn at home. DC planning pending cardiology recs Trend trop/EKG--peaked at 0.3 D/w cardiology re Atrial flutter. Pacemaker to be interrogated per Dr. Love. Lovenox started for anticoagulation. Will dc with eliquis per cards. F/u TTE--EF 70-70%, incr RA pressures Cont BiPAP 15/15, RR 18, titrate FIO2 to O2 sat 91-93% prn Atrovent ATC and PRN Trend ABG Lasix 40mg IV for I/Os goal -1 to 1.5L --> dc'ed per pulm. Cr downtrended today , will resume lasix at a lower dose per cards, start IV lasix 20mg BID Trend Cr. 1.0 --> 1.6 --> 1.3 Strict I/O's, daily weights Monitor BMP, replete lytes as needed Cont home meds but hold micardis given hyperkalemia, likely resume on d/c YANICK Pain control, bowel regimen Supportive care DVT Prophylaxis: SCD, Lovenox Code Status: Full Hospital Classification Declaration: Based on this initial evaluation, and depending on the patient's clinical course, I anticipate that this patient will require hospitalization for 1-2 days for hypoxia, CHF and close respiratory/ hemodynamic monitoring. Disposition: Once the patient is stable to leave the hospital, I anticipate the patient will likely be discharged to the following environment: home with HH + CG Discussed with patient/family, nursing staff, SW/CM, pulm, cardiology regarding clinical status, treatment course, and disposition planning. D/w caregiver and son extensively regarding plan of care. Time of note may not reflect time of encounter. Subjective Date patient seen: Apr 21, 2017 Allergies: Coded Allergies: No Known Allergies (Unverified , 04/17/17) Subjective refusing ABGs now on bipap prn. cleared from pulm standpoint Cr downtrending after holding lasix yesterday hypotensive to 100/40s today. denies sob, cp. caregiver at bedside Objective Last 24 Hour Vital Signs Date Time Temp Pulse Resp B/P (MAP) Pulse Ox O2 Delivery O2 Flow Rate FiO2 04/21/17 12:00 30 04/21/17 12:00 97.0 70 16 100/40 95 Bi-pap 30 04/21/17 11:41 70 18 99 Bi-pap 30 04/21/17 11:34 75 20 95 Full Face 30 04/21/17 11:33 71 18 98 Bi-pap 40 04/21/17 08:58 71 100/40 04/21/17 08:45 71 18 96 Nasal Cannula 4.0 36 04/21/17 08:41 70 18 91 Nasal Cannula 4.0 36 04/21/17 08:00 4.0 04/21/17 08:00 71 04/21/17 08:00 98.1 72 18 100/40 95 Nasal Cannula 4.0 04/21/17 07:47 75 18 100 Nasal Cannula 4.0 36 04/21/17 07:46 Nasal Cannula 4.0 36 04/21/17 07:22 72 18 96 Nasal Cannula 4.0 36 04/21/17 07:18 96 Nasal Cannula 4.0 36 04/21/17 05:30 75 20 95 Full Face 40 04/21/17 04:02 75 18 99 Bi-pap 40 04/21/17 04:00 96.5 88 18 93/53 95 Bi-pap 40 04/21/17 04:00 71 04/21/17 04:00 40 04/21/17 03:55 75 18 99 Bi-pap 40 04/21/17 03:45 70 18 97 Bi-pap 40 04/21/17 03:45 70 18 95 Full Face 40 04/21/17 01:36 69 14 97 Full Face 40 04/21/17 00:00 97.0 95 18 93/51 95 Bi-pap 40 04/21/17 00:00 71 04/20/17 23:48 72 18 99 Bi-pap 40 04/20/17 23:38 71 18 98 Bi-pap 40 04/20/17 23:38 72 18 98 Full Face 40 04/20/17 21:15 91 18 97 Full Face 40 04/20/17 20:00 72 04/20/17 20:00 97.3 70 20 113/51 99 Bi-pap 40 04/20/17 20:00 40 04/20/17 19:40 78 18 99 Nasal Cannula 3.0 32 04/20/17 19:30 74 18 92 Nasal Cannula 2.0 04/20/17 19:29 Nasal Cannula 2.0 28 04/20/17 19:29 92 Nasal Cannula 3.0 32 04/20/17 19:15 72 24 98 Full Face 40 04/20/17 17:30 73 19 98 Full Face 40 04/20/17 16:00 40 04/20/17 16:00 97.3 70 20 109/57 98 Bi-pap 40 04/20/17 16:00 71 04/20/17 15:01 67 18 99 Bi-pap 3.0 32 04/20/17 14:51 72 21 97 Full Face 40 04/20/17 14:49 71 18 97 Bi-pap 40 Intake and Output 04/20/17 04/21/17 19:00 07:00 Intake Total 500 ml 200 ml Output Total 1500 ml 600 ml Balance -1000 ml -400 ml Intake Oral 500 ml 200 ml Output Urine Total 1500 ml 600 ml # Bowel Movements 1 2 Laboratory Tests 04/21/17 03:45: White Blood Count 7.6, Red Blood Count 3.98L, Hemoglobin 13.0, Hematocrit 41.6, Mean Corpuscular Volume 105H, Mean Corpuscular Hemoglobin 32.7H, Mean Corpuscular Hemoglobin Concent 31.2L, Red Cell Distribution Width 15.2H, Platelet Count 104L, Mean Platelet Volume 9.2, Neutrophils (%) (Auto) 63.9, Lymphocytes (%) (Auto) 22.3, Monocytes (%) (Auto) 9.5, Eosinophils (%) (Auto) 3.8H, Basophils (%) (Auto) 0.5, Sodium Level 140, Potassium Level 3.4L, Chloride Level 96L, Carbon Dioxide Level > 45*H, Blood Urea Nitrogen 49H, Creatinine 1.3, Estimat Glomerular Filtration Rate , Glucose Level 302H, Calcium Level 8.4L, Total Bilirubin 0.3, Aspartate Amino Transf (AST/SGOT) 19, Alanine Aminotransferase (ALT/SGPT) 18, Alkaline Phosphatase 37L, Pro-B-Type Natriuretic Peptide 1382H, Total Protein 6.0L, Albumin 2.4L, Globulin 3.6, Albumin/Globulin Ratio 0.7L Height (Feet): 5 Height (Inches): 3.00 Weight (Pounds): 197 General Appearance: no apparent distress, alert EENT: PERRL/EOMI Neck: non-tender, normal alignment Cardiovascular: normal peripheral pulses, normal rate, regularly irregular Respiratory/Chest: chest wall non-tender, lungs clear, normal breath sounds Abdomen: normal bowel sounds, non tender, soft Neurologic: whiskey filterer II-XII grossly normal, no motor/sensory deficits, alert, oriented x 3 Skin: normal pigmentation, warm/dry Franchesca Almodovar N.P. Apr 21, 2017 13:51
[2017-04-21 16:00] VITALS: BP 112/60
[2017-04-21 20:00] VITALS: BP 106/53
[2017-04-21] MEDS: Atorvastatin 80mg tab ORAL SCH (20:52)
[2017-04-21] MEDS: LORazepam 0.5mg tab ORAL PRN (22:52)
[2017-04-22] VITALS: BP 104/55
[2017-04-22] MEDS: Ipratropium 0.02% Inh Soln 2.5ml UD HHN SCH ×5 (03:17→19:06)
[2017-04-22 04:00] VITALS: BP 100/57
[2017-04-22 04:05] LABS: BASOPHILS % (AUTO) 0.6 % (0.0-2.0); EOSINOPHILS % (AUTO) 5.2 % (0.0-3.0); HEMOGLOBIN 12.8 G/DL (12.0-16.0); LYMPHOCYTES % (AUTO) 24.1 % (20.0-45.0); MEAN CORPUSCULAR VOLUME 104 FL (80-99); PLATELET COUNT 101 K/UL (150-450); RED BLOOD COUNT 3.94 M/UL (4.20-5.40); RED CELL DISTRIBUTION WIDTH 15.7 % (11.6-14.8); WHITE BLOOD COUNT 7.6 K/UL (4.8-10.8)
[2017-04-22 04:26] LABS: ALANINE AMINOTRANSFERASE 18 U/L (12-78); ALBUMIN 2.5 G/DL (3.4-5.0); ALBUMIN/GLOBULIN RATIO 0.7 (1.0-2.7); ALKALINE PHOSPHATASE 36 U/L (46-116); ASPARTATE AMINO TRANSFERASE 19 U/L (15-37); BILIRUBIN,TOTAL 0.4 MG/DL (0.2-1.0); BLOOD UREA NITROGEN 42 mg/dL (7-18); CALCIUM 8.7 MG/DL (8.5-10.1); CHLORIDE 97 MMOL/L (98-107); POTASSIUM 3.8 MMOL/L (3.5-5.1); SODIUM 142 MMOL/L (136-145)
[2017-04-22 04:37] LABS: CARBON DIOXIDE 46 MMOL/L (21-32)
[2017-04-22] MEDS: sitaGLIPtin 50mg tab ORAL SCH (06:07)
[2017-04-22] MEDS: NovoLOG Insulin Flexpen SUBQ SCH ×3 (06:08→16:22)
[2017-04-22 08:00] VITALS: BP 103/52
[2017-04-22] MEDS: Enoxaparin 60mg Inj SUBQ SCH (09:00)
[2017-04-22] MEDS: Metoprolol Succinate XL 50mg tab ORAL SCH (10:09)
[2017-04-22] MEDS: Aspirin EC 81mg tab ORAL SCH (10:09)
[2017-04-22] MEDS ORDERED: ELIQUIS5 MG PO ×2 (10:51→10:52)
[2017-04-22] MEDS ORDERED: TOPROL XL50 MG ORAL ×2 (10:51→10:52)
[2017-04-22] MEDS ORDERED: FUROSEMIDE40 MG ORAL ×2 (10:54)
[2017-04-22] MEDS ORDERED: POTASSIUM CHLO10 ME3 ORAL (10:59)
--- NOTE | 2017-04-22 10:59 | Pulmonology Progress Note ---
Assessment/Plan Problems: (1) Acute on chronic diastolic (congestive) heart failure (2) NSTEMI (non-ST elevated myocardial infarction) (3) Chronic diastolic (congestive) heart failure (4) DM2 (diabetes mellitus, type 2) Assessment/Plan diuresed 8 liters prn BIPAP check electrolytes, creatinine lower, check pace maker hold lopressor if sbp less than 120 resume lasix po watch electroltyes sliding scale dc planning when ok iw rewriter Subjective ROS Limited/Unobtainable: No Constitutional: Reports: no symptoms HEENT: Repors: no symptoms Respiratory: Reports: no symptoms Allergies: Coded Allergies: No Known Allergies (Unverified , 04/17/17) Objective Last 24 Hour Vital Signs Date Time Temp Pulse Resp B/P (MAP) Pulse Ox O2 Delivery O2 Flow Rate FiO2 04/22/17 10:51 67 19 96 Bi-pap 30 04/22/17 10:48 67 21 96 Full Face 30 04/22/17 10:09 73 103/52 04/22/17 08:49 73 19 96 Full Face 30 04/22/17 08:00 4.0 04/22/17 08:00 97.4 74 19 103/52 98 Bi-pap 30 04/22/17 08:00 74 04/22/17 07:14 70 18 99 Nasal Cannula 3.0 32 04/22/17 07:11 72 16 98 04/22/17 07:04 Nasal Cannula 3.0 32 04/22/17 07:04 72 16 98 Nasal Cannula 3.0 32 04/22/17 07:04 98 Nasal Cannula 3.0 32 04/22/17 05:23 72 16 96 Full Face 30 04/22/17 04:00 72 04/22/17 04:00 30 04/22/17 04:00 97.4 72 18 100/57 94 Bi-pap 30 04/22/17 03:26 72 19 97 Bi-pap 30 04/22/17 03:17 71 18 96 Bi-pap 30 04/22/17 03:17 71 18 96 Full Face 30 04/22/17 01:05 73 18 95 Full Face 30 04/22/17 00:00 98.3 71 18 104/55 96 Bi-pap 30 04/22/17 00:00 72 04/22/17 00:00 30 04/21/17 23:03 73 20 97 Full Face 30 04/21/17 22:41 Nasal Cannula 3.0 32 04/21/17 22:40 70 18 98 Nasal Cannula 3.0 32 04/21/17 22:31 70 18 96 Nasal Cannula 3.0 32 04/21/17 21:04 71 21 98 Facial 30 04/21/17 20:00 30 04/21/17 20:00 72 04/21/17 20:00 97.4 73 19 106/53 93 Bi-pap 30 04/21/17 19:04 71 19 97 Bi-pap 30 04/21/17 18:54 73 20 93 Bi-pap 30 04/21/17 18:54 73 20 93 Full Face 30 04/21/17 18:54 30 04/21/17 18:54 93 Bi-pap 30 04/21/17 18:54 Bi-pap 30 04/21/17 17:04 85 22 94 Full Face 30 04/21/17 16:00 30 04/21/17 16:00 97.0 79 18 112/60 93 Bi-pap 30 04/21/17 16:00 71 04/21/17 15:45 70 18 99 Bi-pap 30 04/21/17 15:30 30 04/21/17 15:29 85 22 95 Full Face 30 04/21/17 15:26 85 18 95 Bi-pap 30 04/21/17 12:00 30 04/21/17 12:00 97.0 70 16 100/40 95 Bi-pap 30 04/21/17 12:00 71 04/21/17 11:41 70 18 99 Bi-pap 30 04/21/17 11:34 75 20 95 Full Face 30 04/21/17 11:33 71 18 98 Bi-pap 40 Intake and Output 04/21/17 04/22/17 19:00 07:00 Intake Total 500 ml 656 ml Output Total 900 ml 900 ml Balance -400 ml -244 ml Intake Oral 500 ml 656 ml Output Urine Total 900 ml 900 ml # Bowel Movements 1 2 Objective HEENT: normocephalic, atraumatic, mucous membranes moist Respiratory/Chest: chest wall non-tender, lungs clear, no respiratory distress Cardiovascular: normal peripheral pulses Abdomen: soft, non tender, non distended Genitourinary: normal external genitalia Extremities: no cyanosis, no clubbing, minimal edema Skin: no ulcers Laboratory Tests 04/22/17 03:15: White Blood Count 7.6, Red Blood Count 3.94L, Hemoglobin 12.8, Hematocrit 41.0, Mean Corpuscular Volume 104H, Mean Corpuscular Hemoglobin 32.5H, Mean Corpuscular Hemoglobin Concent 31.2L, Red Cell Distribution Width 15.7H, Platelet Count 101L, Mean Platelet Volume 10.1, Neutrophils (%) (Auto) 60.0, Lymphocytes (%) (Auto) 24.1, Monocytes (%) (Auto) 10.0, Eosinophils (%) (Auto) 5.2H, Basophils (%) (Auto) 0.6, Sodium Level 142, Potassium Level 3.8, Chloride Level 97L, Carbon Dioxide Level 46*H, Blood Urea Nitrogen 42H, Creatinine 1.0, Estimat Glomerular Filtration Rate , Glucose Level 178#H, Calcium Level 8.7, Total Bilirubin 0.4, Aspartate Amino Transf (AST/SGOT) 19, Alanine Aminotransferase (ALT/SGPT) 18, Alkaline Phosphatase 36L, Pro-B-Type Natriuretic Peptide 1169H, Total Protein 6.0L, Albumin 2.5L, Globulin 3.5, Albumin/Globulin Ratio 0.7L Current Medications Medications (Trade) Dose Ordered Sig/[place] Route PRN Reason Start Time Stop Time Status Last Admin Dose Admin Acetaminophen (Tylenol) 650 mg Q4H PRN ORAL Fever (temp>100.5F) 04/17/17 16:00 05/17/17 15:59 04/21/17 18:21 Aspirin (Ecotrin) 81 mg DAILY ORAL 04/18/17 09:00 05/18/17 08:59 04/22/17 10:09 Atorvastatin Calcium (Lipitor) 80 mg BEDTIME ORAL 04/17/17 21:00 05/17/17 20:59 04/21/17 20:52 Dextrose (Dextrose 50%) STAT PRN IV Hypoglycemia 04/17/17 19:45 05/17/17 19:44 Enoxaparin Sodium (Lovenox) 60 mg EVERY 12 HOURS SUBQ 04/19/17 21:00 05/19/17 20:59 04/20/17 22:47 Folic Acid (Folate) 1 mg DAILY ORAL 04/18/17 09:00 05/18/17 08:59 04/22/17 10:09 Furosemide (Lasix) 20 mg EVERY 12 HOURS IV 04/21/17 21:00 05/21/17 20:59 04/22/17 10:10 Gabapentin (Neurontin) 600 mg THREE TIMES A DAY ORAL 04/18/17 09:00 05/18/17 08:59 04/22/17 10:09 Insulin Aspart (NovoLOG) BEFORE MEALS AND HS SUBQ 04/17/17 21:00 05/17/17 20:59 04/22/17 06:08 Ipratropium Orion (Atrovent) 500 mcg Q4H PRN HHN SOB, wheezing 04/17/17 17:00 04/22/17 16:59 Ipratropium Orion (Atrovent) 500 mcg Q4HRT HHN 04/17/17 18:00 04/22/17 17:59 04/22/17 10:51 Levothyroxine Sodium (Synthroid) 50 mcg DAILY@0630 ORAL 04/18/17 06:30 05/18/17 06:29 04/22/17 06:07 Lorazepam (Ativan) 0.5 mg Q8HR PRN ORAL For Anxiety 04/18/17 13:00 04/25/17 12:59 04/21/17 22:52 Metoprolol Succinate (Toprol XL) 50 mg DAILY ORAL 04/19/17 16:00 05/18/17 15:59 04/22/17 10:09 Ondansetron HCl (Zofran) 4 mg Q6H PRN IVP Nausea & Vomiting 04/17/17 16:00 05/17/17 15:59 Polyethylene Glycol (Miralax) 17 gm DAILYPRN PRN ORAL Constipation 04/17/17 16:00 05/17/17 15:59 Sitagliptin Phosphate (Januvia) 50 mg ACBREAKFAST ORAL 04/18/17 06:30 05/18/17 06:29 04/22/17 06:07 Temazepam (Restoril) 15 mg HSPRN PRN ORAL Insomnia 04/17/17 16:00 04/24/17 15:59 04/19/17 01:08 Tiotropium Orion (Spiriva Inhaler) 1 puff DAILY INH 04/18/17 09:00 05/18/17 08:59 04/22/17 08:44 JONI MADERA Apr 22, 2017 10:58
--- NOTE | 2017-04-22 11:16 | Cardiac Electrophysiology PN ---
Assessment/Plan Assessment/Plan 1. Troponin leak. Due to atrial flutter with rapid ventricular response and azotemia. Continue aspirin and Toprol 50 mg daily. EF 70% 2. Congestive heart failure with diastolic dysfunction as well as atrial flutter with rapid ventricular response. On Lasix 20 mg IV BID. Diuresed almost 8 liters during this admission. 3. Hypertension, on Toprol and Lasix. 4. Status post BS pacemaker implantation. Interrogated and showed Nl Fx 5. Paroxysmal Atrial flutter, Likely benefit from MARTY and if no clot, atrial flutter ablation for a curative approach as out patient Change Lovenox to Eliquis. Continue Toprol 50 6. Chronic obstructive pulmonary disease, on Atrovent and Proventil and BIPAP 7. Diabetes, on Januvia. 8. Hypothyroidism, on Synthroid. DW Dr Anna and Dr Hill Subjective Subjective On BIPAP , Wants to go home. Remained in atrial flutter in 70s. Echo EF 75%. Objective Last 24 Hour Vital Signs Date Time Temp Pulse Resp B/P (MAP) Pulse Ox O2 Delivery O2 Flow Rate FiO2 04/22/17 11:03 62 24 92 Bi-pap 30 04/22/17 10:51 67 19 96 Bi-pap 30 04/22/17 10:48 67 21 96 Full Face 30 04/22/17 10:09 73 103/52 04/22/17 08:49 73 19 96 Full Face 30 04/22/17 08:00 4.0 04/22/17 08:00 97.4 74 19 103/52 98 Bi-pap 30 04/22/17 08:00 74 04/22/17 07:14 70 18 99 Nasal Cannula 3.0 32 04/22/17 07:11 72 16 98 04/22/17 07:04 Nasal Cannula 3.0 32 04/22/17 07:04 72 16 98 Nasal Cannula 3.0 32 04/22/17 07:04 98 Nasal Cannula 3.0 32 04/22/17 05:23 72 16 96 Full Face 30 04/22/17 04:00 72 04/22/17 04:00 30 04/22/17 04:00 97.4 72 18 100/57 94 Bi-pap 30 04/22/17 03:26 72 19 97 Bi-pap 30 04/22/17 03:17 71 18 96 Bi-pap 30 04/22/17 03:17 71 18 96 Full Face 30 04/22/17 01:05 73 18 95 Full Face 30 04/22/17 00:00 98.3 71 18 104/55 96 Bi-pap 30 04/22/17 00:00 72 04/22/17 00:00 30 04/21/17 23:03 73 20 97 Full Face 30 04/21/17 22:41 Nasal Cannula 3.0 32 04/21/17 22:40 70 18 98 Nasal Cannula 3.0 32 04/21/17 22:31 70 18 96 Nasal Cannula 3.0 32 04/21/17 21:04 71 21 98 Facial 30 04/21/17 20:00 30 04/21/17 20:00 72 04/21/17 20:00 97.4 73 19 106/53 93 Bi-pap 30 04/21/17 19:04 71 19 97 Bi-pap 30 04/21/17 18:54 73 20 93 Bi-pap 30 04/21/17 18:54 73 20 93 Full Face 30 04/21/17 18:54 30 04/21/17 18:54 93 Bi-pap 30 04/21/17 18:54 Bi-pap 30 04/21/17 17:04 85 22 94 Full Face 30 04/21/17 16:00 30 04/21/17 16:00 97.0 79 18 112/60 93 Bi-pap 30 04/21/17 16:00 71 04/21/17 15:45 70 18 99 Bi-pap 30 04/21/17 15:30 30 04/21/17 15:29 85 22 95 Full Face 30 04/21/17 15:26 85 18 95 Bi-pap 30 04/21/17 12:00 30 04/21/17 12:00 97.0 70 16 100/40 95 Bi-pap 30 04/21/17 12:00 71 04/21/17 11:41 70 18 99 Bi-pap 30 04/21/17 11:34 75 20 95 Full Face 30 04/21/17 11:33 71 18 98 Bi-pap 40 Intake and Output 04/21/17 04/22/17 19:00 07:00 Intake Total 500 ml 656 ml Output Total 900 ml 900 ml Balance -400 ml -244 ml Intake Oral 500 ml 656 ml Output Urine Total 900 ml 900 ml # Bowel Movements 1 2 Laboratory Tests Test 04/22/17 03:15 White Blood Count 7.6 K/UL (4.8-10.8) Red Blood Count 3.94 M/UL (4.20-5.40) L Hemoglobin 12.8 G/DL (12.0-16.0) Hematocrit 41.0 % (37.0-47.0) Mean Corpuscular Volume 104 FL (80-99) H Mean Corpuscular Hemoglobin 32.5 PG (27.0-31.0) H Mean Corpuscular Hemoglobin Concent 31.2 G/DL (32.0-36.0) L Red Cell Distribution Width 15.7 % (11.6-14.8) H Platelet Count 101 K/UL (150-450) L Mean Platelet Volume 10.1 FL (6.5-10.1) Neutrophils (%) (Auto) 60.0 % (45.0-75.0) Lymphocytes (%) (Auto) 24.1 % (20.0-45.0) Monocytes (%) (Auto) 10.0 % (1.0-10.0) Eosinophils (%) (Auto) 5.2 % (0.0-3.0) H Basophils (%) (Auto) 0.6 % (0.0-2.0) Sodium Level 142 MMOL/L (136-145) Potassium Level 3.8 MMOL/L (3.5-5.1) Chloride Level 97 MMOL/L (98-107) L Carbon Dioxide Level 46 MMOL/L (21-32) *H Blood Urea Nitrogen 42 mg/dL (7-18) H Creatinine 1.0 MG/DL (0.55-1.30) Estimat Glomerular Filtration Rate mL/min (>60) Glucose Level 178 MG/DL (74-106) #H Calcium Level 8.7 MG/DL (8.5-10.1) Total Bilirubin 0.4 MG/DL (0.2-1.0) Aspartate Amino Transf (AST/SGOT) 19 U/L (15-37) Alanine Aminotransferase (ALT/SGPT) 18 U/L (12-78) Alkaline Phosphatase 36 U/L (46-116) L Pro-B-Type Natriuretic Peptide 1169 pg/mL (0-125) H Total Protein 6.0 G/DL (6.4-8.2) L Albumin 2.5 G/DL (3.4-5.0) L Globulin 3.5 g/dL Albumin/Globulin Ratio 0.7 (1.0-2.7) L Objective HEAD AND NECK: No JVD.BIPAP on LUNGS: Coarse rhonchi CARDIOVASCULAR: Irregular S1 and S2 with no gallop or murmur. Pacemaker is in left subclavian. ABDOMEN: Soft. EXTREMITIES: B 2+ pitting edema. RENETTA PHAM Apr 22, 2017 11:16
--- NOTE | 2017-04-22 11:21 | Diagnostic Imaging Report ---
Indication: Dyspnea Comparison: 04/20/2017 A single view chest radiograph was obtained. Findings: Heart is enlarged. Retrocardiac density and silhouetting of the left hemidiaphragm demonstrated. Similar findings previously. Underlying pleural effusion and/or parenchymal disease such as pneumonia is not excludable. Pulmonary vascular prominence noted centrally without definite CHF. Pacemaker noted once again on the left. Old ununited fracture of the right humeral neck demonstrated. Bones are osteopenic. IMPRESSION: Left pleural effusion and/or parenchymal disease suspected. Findings appear unchanged.
[2017-04-22 12:00] VITALS: BP 116/63
[2017-04-22 16:02] VITALS: BP 117/72
[2017-04-22 20:00] VITALS: BP 107/58
--- NOTE | 2017-04-23 13:16 | Diagnostic Imaging Report ---
APPROVED REPORT CPT Code: 52443 Present Symptoms Shortness of breath BILATERAL: Imaging reveals a patent deep venous system bilaterally. There is no evidence of thrombus within the femoral, popliteal or tibial segments. The greater saphenous veins are also within normal limits. Doppler indicates normal spontaneous flow within these segments.
--- NOTE | 2017-04-30 17:42 | Discharge Summary ---
Discharge Summary Hospital Course Date of Admission Apr 17, 2017 at 13:47 Date of Discharge Apr 22, 2017 at 20:25 Admitting Diagnosis ACUTE CORONARY SYNDROME JUNIOR Hannah is a 87 year old female who was admitted on Apr 17, 2017 at 13:47 for Acute Coronary Syndrome Hospital Course dc summary #[id number] Discharge Medications New Medications: Apixaban (Eliquis) 5 Mg Tablet 5 MG PO BID for 30 Days, #30 TAB 1 Refill Furosemide* (Lasix*) 40 Mg Tablet 40 MG ORAL BID for 30 Days, #60 TAB Potassium Chloride (Potassium Chloride) 10 Meq Tablet.er 20 MEQ ORAL DAILY for 30 Days, #60 TAB 0 Refills Metoprolol Succinate* (Toprol Xl*) 50 Mg Tab.er.24h 50 MG ORAL DAILY for 30 Days, #30 TAB 2 Refills Continued Medications: Acetaminophen* (Tylenol Extra Strength*) 500 Mg Tablet 500 MG ORAL Q6H PRN for Mild Pain/Temp > 100.5, TAB 0 Refills Aspirin* (Aspir 81*) 81 Mg Tablet.dr 81 MG ORAL DAILY, TAB Calcium Carbonate/Vitamin D3 (Caltrate 600 + D Tablet) 1 Each Tablet 1 EACH PO, TAB Cholecalciferol (Vitamin D3) (Vitamin D-400*) 400 Unit Tablet 100 UNITS ORAL, TAB 0 Refills Cyanocobalamin (Vitamin B-12) (B-12) 1,000 Mcg Tablet.er 1000 MCG PO, TAB Folic Acid* (Folic Acid*) 1 Mg Tablet 1 MG ORAL DAILY, TAB Gabapentin* (Gabapentin*) 600 Mg Tablet 600 MG ORAL THREE TIMES A DAY, TAB Glimepiride* (Glimepiride*) 4 Mg Tablet 4 MG ORAL BEFORE BREAKFAST, TAB Glucosamine Sulfate 2KCL (Glucosamine) 1,000 Mg Tablet 1500 MG PO, TAB Insulin Glargine (Lantus) 100 Unit/1 Ml Insuln.pen 0 SUBQ BEDTIME, #1 EA 0 Refills Levothyroxine Sodium* (Levothyroxine Sodium*) 50 Mcg Tablet 50 MCG ORAL, TAB Take in the morning on an empty stomach, at least 30 minutes before food. Lorazepam* (Lorazepam*) 0.5 Mg Tablet 0.5 MG ORAL THREE TIMES A DAY, TAB Multivitamins* (Multivitamins*) 1 Each Tablet 1 TAB ORAL DAILY, TAB 0 Refills Nitrofurantoin Macrocrystal (Nitrofurantoin) 100 Mg Capsule 100 MG PO, CAP [place]-3/Dha/Epa/Fish Oil ([place]-3 Fish Oil 1,200 Mg Sfgl) 1,200 Mg Capsule 1200 MG PO, CAP Polyethylene Glycol 3350* (Miralax*) 17 Gm Powd.pack 17 GM ORAL DAILY, PACKET Rosuvastatin Calcium* (Crestor*) 40 Mg Tablet 40 MG ORAL DAILY, TAB Sitagliptin (Januvia) 50 Mg Tablet 50 MG ORAL, TAB Tiotropium [place]* (Spiriva*) 18 Mcg Cap.w.dev 1 PUFF INH, EA Ubidecarenone (Co Q-10) 400 Mg Capsule 400 MG PO, CAP Discontinued Medications: Ciprofloxacin* (Ciprofloxacin*) 250 Mg Tablet 250 MG PO, TAB Furosemide* (Lasix*) 20 Mg Tablet 20 MG ORAL DAILY, TAB Metoprolol Succinate* (Metoprolol Succinate*) 25 Mg Tab.er.24h 25 MG ORAL DAILY, TAB Telmisartan (Micardis) 40 Mg Tablet 40 MG ORAL DAILY, TAB Discharge Condition Upon Discharge: stable Discharge Disposition Patient was discharged to Home with Home [facility]() Discharge Diagnoses: Discharge Instructions Discharge Instructions Special Instructions I have been assigned to complete a D/C Summary on this account. I was not involved in the patient management Jeanine Weaver NP (Vanchtein) Apr 30, 2017 17:42
--- NOTE | 2017-05-01 01:15 | Discharge Summary 2 SIG ---
DATE OF ADMISSION: 04/17/2017 DATE OF DISCHARGE: 04/22/2017 REASON FOR ADMISSION: The patient is an 87-year-old female with past medical history of chronic diastolic heart failure, atrial flutter, hypothyroidism, obesity, chronic hypercapnia with alveolar hypoventilation, on BiPAP at home at night and as needed during the day, restrictive ventilatory defect, chronic hypoxic respiratory failure (on home O2), hypertension, diabetes, depression, anxiety, sick sinus syndrome, status post permanent pacemaker, hypothyroidism, and history of CVA, presented to emergency room for evaluation with shortness of breath and hypoxia. The patient was recently hospitalized at [facility] for chest pain and underwent CT coronary angiogram for further risk assessment. At that time, she showed increased plaque burden compared with the prior, but no critical stenosis. The patient was doing well until she became short of breath 24 to 48 hours prior to presentation to the emergency department. The patient is compliant with the BiPAP. The patient recently seen by clinical rn as outpatient. Lasix dose was increased, secondary to fluid overload. There was no fever or chills. No nausea. No vomiting. No diarrhea. No constipation. No chest pain. No abdominal pain. In the emergency department, the patient was hypoxic on room air. She required placement on oxygen with some improvement and subsequently was placed on the BiPAP. She was getting Lasix 40 mg IV. Noted elevated troponin of 0.107. Aspirin was given. EKG showed atrial flutter with 2:1 ratio and heart rate of 120. The patient was admitted for further management with acute on chronic respiratory failure with hypoxemia, non-STEMI, and diabetes, glucose was 324. HOSPITAL COURSE: The patient was admitted. Cardiology and Pulmonology consults were requested. The patient was on the BiPAP and subsequently was able to be weaned to nasal cannula. Pulmonary toilet was provided around the clock and as needed. The patient was followed up with ABG. ABG showed chronic hypercapnia. BiPAP to be continued at home at night and as needed. The patient was on inhaler around the clock and as needed. Venous duplex of bilateral lower extremities revealed patent deep venous system bilaterally, no evidence of acute DVT. Initial chest x-ray showed chronic interstitial disease, but no definite acute process. Cardiomegaly was noted. The patient was followed up with chest x-ray, and findings on the chest x-ray were essentially unchanged. Asset Protection Lead closely followed. Serial troponin were monitored, and from initial 0.17 level peaked to 0.386 and then it started to trend down. Last troponin -0.256. Per clinical rn, the patient possibly had a troponin leak due to atrial flutter with rapid ventricular response and azotemia. However, due to possible NSTEMI, the patient was continued on aspirin and extended relief of beta-krystle with Toprol 50 mg daily. Echocardiogram revealed preserved ejection fraction of 70%. The patient had congestive heart failure with diastolic dysfunction. The patient was on beta-krystle to maintain rate control. Rate was finally maintained. The patient was placed on diuresis with IV Lasix. Cardiorenal parameters and volumes were closely monitored. Fluid restriction was implemented along with strict intake and output and daily weights.The patient diuresed almost eight liters during this admission. Blood pressure was managed with beta-krystle and Lasix. Pacemaker interrogated and showed normal functioning. The patient likely will benefit from MARTY and if no clot, atrial flutter ablation for a curative approach as outpatient. Anticoagulation was continued with Eliquis. Reinforced compliance at home. Initially noted elevated creatinine, likely secondary to diuresis use, however, creatinine trending down. Initial creatinine 1 and then up to 1.6 trending down, prior to discharge-1.0. Renal parameters and electrolytes were closely monitored. Electrolytes were corrected as needed. Renal ultrasound revealed no definite evidence of hydronephrosis bilaterally, normal echogenicity of bilateral kidneys. Blood sugar was managed with sliding scale of insulin. TSH was within normal limits. Current dose of Synthroid. was continued. Pain management provided. Bowel regimen instituted. Supportive care provided. The patient was on DVT prophylaxis with sequential compression device, and the patient was also on anticoagulation, initially on Lovenox and then Eliquis. The patient was stable for discharge home with home health services. Follow up with the primary care provider as outpatient. DISCHARGE INSTRUCTIONS: The patient discharged home with home health services. Follow up with the primary care provider as advised next week. Recommended outpatient cardiac workup with MARTY and if no clot, consider atrial flutter ablation. DISCHARGE MEDICATIONS: See medication reconciliation list. DISCHARGE DIAGNOSES: 1. Acute on chronic respiratory failure with hypoxia. 2. Acute on chronic diastolic congestive heart failure. 3. Atrial flutter with rapid ventricular response. 4. Probable non-ST elevated myocardial infarction. 5. Chronic hypercapnia with alveolar hypoventilation. 6. Moderate to severe pulmonary hypertension. 7. Obesity. 8. Hypothyroidism. 9. History of cerebrovascular accident. 10. Sick sinus syndrome, status post permanent pacemaker placement. 11. Diabetes mellitus type 2. 12. Hyperkalemia. Dolores Orellana M.D. I have been assigned to dictate discharge summary on this account and I was not involved in the patient's management. Jeanine McleanStony Brook Southampton Hospitalmelissa N.PLala DR: BRADY JOB#: [id number] CC: GISSEL
--- NOTE | 2017-05-01 16:03 | Discharge Summary ---
Discharge Summary Hospital Course Date of Admission Apr 17, 2017 at 13:47 Date of Discharge Apr 22, 2017 at 20:25 Admitting Diagnosis NSTEMI, CHF, Hypoxia Reason for Hospitalization: NSTEMI, CHF, Hypoxia HPI 87 year oldfemale with pmh of chronic diastolic heart failure, Aflutter, hypothyroidism, obesity, chronic hypercapnea with alveolar hypoventilation (on BiPAP qHS and PRN at home), restrictive ventilatory defect, chronic hypoxic respiratory failure (on home O2), HTN, DM, depression/anxiety, SSS s/p PPM, hypothyroidism, and h/o CVA who presents with SOB and hypoxia. Pt was recently admitted at [facility] 02/20//02/22/17 for chest pain and underwent CT coronary angio for further risk assessment, showed increased plaque burden compared to prior but no critical stenoses. Per son, pt was doing well until abt 24-48h ago when she was noted to be more short of breath. Pt notes compliance with BiPAP. Pt recently seen by cardiology and lasix dose increased 2/2 fluid overload. Denies f/c, n/v, d/c, chest pain, abd pain. In ED, pt hypoxic to 70s on room air, placed on O2 w/ some improvement and then placed on BiPAP. She was given lasix 40mg IV in ED. Pt also w/ elevated trop to 0.107. EKG showed Aflutter 2:1 w/ rate to 120s. Consultations Cardiology, Pulmonology Hospital Course Pt was admitted to [facility] and seen by pulmonology and cardiology. She was continued on BiPAP 15/5. Troponin peaked at 0.3 and then downtrended. NSTEMI likely type 2 demand ischemia in setting of CHF. TTE showed EF 70% and increased RA pressures. Pt was diuresed with lasix 40mg IV w/ good response. Pt also noted to be in Aflutter. Pacemaker to be interrogated by EP Dr. Love.. Lovenox started for anticoagulation and was transitioned to Eliquis on discharge. Pt to follow-up with her own marine service operator at [facility] for possible ablation. Once fluid status improved, pt was discharged home with home health. Discharge physical exam: General: alert, cooperative, no distress, appears stated age Head: normocephalic, without obvious abnormality, atraumatic Eyes: conjunctivae/corneas clear. PERRL, EOM's intact Throat: lips, mucosa, and tongue normal. MMM Neck: supple, symmetrical, trachea midline, and no JVD Lungs: clear to auscultation bilaterally Heart: regular rate and rhythm, S1, S2 normal, no murmur, click, rub or gallop Abdomen: soft, non-tender, non-distended, bowel sounds normal; no masses or organomegaly Extremities: extremities normal, atraumatic, no cyanosis or edema Pulses: 2+ and symmetric Skin: skin color, texture, turgor normal; no rashes or lesions Neurologic: grossly normal, no focal deficits Discharge diagnoses: 1) Acute and chronic respiratory failure with hypoxia ICD Codes: J96.21 - Acute and chronic respiratory failure with hypoxia SNOMED: 611854292, 813746958 (2) Acute on chronic diastolic (congestive) heart failure ICD Codes: I50.33 - Acute on chronic diastolic (congestive) heart failure SNOMED: 81303868, 736903524 (3) Aflutter with RVR (4) NSTEMI (non-ST elevated myocardial infarction) ICD Codes: I21.4 - Non-ST elevation (NSTEMI) myocardial infarction SNOMED: 042652414 (5) Chronic hypercapnea with alveolar hypoventilation (on BiPAP qHS and PRN at home) (6) Moderate to severe pulmonary hypertension ICD Codes: I27.20 - Pulmonary hypertension, unspecified SNOMED: 12217833 (7) Obesity ICD Codes: E66.9 - Obesity, unspecified SNOMED: 666788235 (8) Hypothyroidism ICD Codes: E03.9 - Hypothyroidism, unspecified SNOMED: 39016244 (9) H/O: CVA (cerebrovascular accident) ICD Codes: Z86.73 - Personal history of transient ischemic attack (TIA), and cerebral infarction without residual deficits SNOMED: 087497360 (10) SSS s/p PPM (11) DM2 (diabetes mellitus, type 2) ICD Codes: E11.9 - Type 2 diabetes mellitus without complications SNOMED: 79455704 Qualifiers: Qualified Codes: E11.8 - Type 2 diabetes mellitus with unspecified complications; Z79.4 - director long term care (current) use of insulin (12) Hyperkalemia ICD Codes: E87.5 - Hyperkalemia Discharge Medications New Medications: Apixaban (Eliquis) 5 Mg Tablet 5 MG PO BID for 30 Days, #30 TAB 1 Refill Furosemide* (Lasix*) 40 Mg Tablet 40 MG ORAL BID for 30 Days, #60 TAB Potassium Chloride (Potassium Chloride) 10 Meq Tablet.er 20 MEQ ORAL DAILY for 30 Days, #60 TAB 0 Refills Metoprolol Succinate* (Toprol Xl*) 50 Mg Tab.er.24h 50 MG ORAL DAILY for 30 Days, #30 TAB 2 Refills Continued Medications: Acetaminophen* (Tylenol Extra Strength*) 500 Mg Tablet 500 MG ORAL Q6H PRN for Mild Pain/Temp > 100.5, TAB 0 Refills Aspirin* (Aspir 81*) 81 Mg Tablet.dr 81 MG ORAL DAILY, TAB Calcium Carbonate/Vitamin D3 (Caltrate 600 + D Tablet) 1 Each Tablet 1 EACH PO, TAB Cholecalciferol (Vitamin D3) (Vitamin D-400*) 400 Unit Tablet 100 UNITS ORAL, TAB 0 Refills Cyanocobalamin (Vitamin B-12) (B-12) 1,000 Mcg Tablet.er 1000 MCG PO, TAB Folic Acid* (Folic Acid*) 1 Mg Tablet 1 MG ORAL DAILY, TAB Gabapentin* (Gabapentin*) 600 Mg Tablet 600 MG ORAL THREE TIMES A DAY, TAB Glimepiride* (Glimepiride*) 4 Mg Tablet 4 MG ORAL BEFORE BREAKFAST, TAB Glucosamine Sulfate 2KCL (Glucosamine) 1,000 Mg Tablet 1500 MG PO, TAB Insulin Glargine (Lantus) 100 Unit/1 Ml Insuln.pen 0 SUBQ BEDTIME, #1 EA 0 Refills Levothyroxine Sodium* (Levothyroxine Sodium*) 50 Mcg Tablet 50 MCG ORAL, TAB Take in the morning on an empty stomach, at least 30 minutes before food. Lorazepam* (Lorazepam*) 0.5 Mg Tablet 0.5 MG ORAL THREE TIMES A DAY, TAB Multivitamins* (Multivitamins*) 1 Each Tablet 1 TAB ORAL DAILY, TAB 0 Refills Nitrofurantoin Macrocrystal (Nitrofurantoin) 100 Mg Capsule 100 MG PO, CAP [place]-3/Dha/Epa/Fish Oil ([place]-3 Fish Oil 1,200 Mg Sfgl) 1,200 Mg Capsule 1200 MG PO, CAP Polyethylene Glycol 3350* (Miralax*) 17 Gm Powd.pack 17 GM ORAL DAILY, PACKET Rosuvastatin Calcium* (Crestor*) 40 Mg Tablet 40 MG ORAL DAILY, TAB Sitagliptin (Januvia) 50 Mg Tablet 50 MG ORAL, TAB Tiotropium [place]* (Spiriva*) 18 Mcg Cap.w.dev 1 PUFF INH, EA Ubidecarenone (Co Q-10) 400 Mg Capsule 400 MG PO, CAP Discontinued Medications: Ciprofloxacin* (Ciprofloxacin*) 250 Mg Tablet 250 MG PO, TAB Furosemide* (Lasix*) 20 Mg Tablet 20 MG ORAL DAILY, TAB Metoprolol Succinate* (Metoprolol Succinate*) 25 Mg Tab.er.24h 25 MG ORAL DAILY, TAB Telmisartan (Micardis) 40 Mg Tablet 40 MG ORAL DAILY, TAB Discharge Condition Upon Discharge: stable Discharge Disposition Patient was discharged to Home with Home Health(06) Discharge Diagnoses: Sergio Felix M.D. May 01, 2017 16:03
== END 2017-04-22 20:25 | disposition home health service (06) | DRG 280 ==
LOC: EDBD 12:33 → EMR 12:50 → EDBEDREQ 13:07 → 2W 13:47 → EDBEDREQSVC 14:36 → EDBEDREQ 14:36 → UNDODISIN 04-20 10:40
PROC: 5A09457 Assistance with Respiratory Ventilation, 24-96 Consecutive Hours, Continuous Positive Airway Pressure (ICD-10-PCS; principal; 2017-04-17)
DX: I50.33 Acute on chronic diastolic (congestive) heart failure (principal); I21.4 Non-ST elevation (NSTEMI) myocardial infarction; J96.21 Acute and chronic respiratory failure with hypoxia; N17.0 Acute kidney failure with tubular necrosis; I48.92 Unspecified atrial flutter; I27.20 Pulmonary hypertension, unspecified; E66.9 Obesity, unspecified; E03.9 Hypothyroidism, unspecified; Z86.73 Personal history of transient ischemic attack (TIA), and cerebral infarction without residual deficits; E11.9 Type 2 diabetes mellitus without complications; E87.5 Hyperkalemia; Z95.0 Presence of cardiac pacemaker; J44.9 Chronic obstructive pulmonary disease, unspecified; Z79.4 Long term (current) use of insulin; R06.89 Other abnormalities of breathing
CPT/HCPCS: 36415; 36600; 71045; 76775; 80048; 80053; 80061; 80069; 81003; 82550; 82803; 82962; 83036; 83735; 83880; 84100; 84439; 84443; 84484; 85025; 85610; 85730; 93005; 93306; 93970; 94640; 94660; 94664; 94760; J1815; J8499